=== PATIENT | female | born 1930 | race Caucasian/White ===

== ENCOUNTER 2019-02-11 09:16 | Inpatient (IN) | payer MEDICARE ==
[~2019-02-11] VITALS: Ht 163.8 cm; Wt 56.7 kg
[2019-02-11] MEDS ORDERED: IV NORMAL SALINE 1000ML BAG 1,000 ML IV SCH (10:27)
--- NOTE | 2019-02-11 10:37 | PHYS DOC ---
Past Medical History Past Medical History: Hypertension, Other Additional Past Medical Histor: syncope, chronic back pain Past Surgical History: Other Additional Past Surgical Histo: nerve stimulator (back), mult back surgeries, bilat foot surgery Additional Information: quit smoking 1983 Alcohol Use: None Drug Use: None Adult General Chief Complaint Chief Complaint: DIARRHEA HPI HPI Patient is a 88 year old female who presents with complaining of diarrhea. Patient complaining of 3-4 episodes of nonbloody diarrhea per day for the last 10 days. Patient stated episodes of diarrhea usually happens at night and sometimes during sleep she had bowel incontinence. Patient complaining of nausea and anorexia and generalized weakness with episodes of lower abdominal cramping pain during diarrhea. Patient denies fever, urinary symptom, sick contact, use of antibiotic, history of the same problem. Patient was seen by her primary care physician 5 days ago and had negative stool test. Review of Systems Review of Systems Constitutional: Denies fever, reports chills [] Eyes: Denies change in visual acuity, redness, or eye pain [] HENT: Denies nasal congestion or sore throat [] Respiratory: Denies cough or shortness of breath [] Cardiovascular: No additional information not addressed in HPI [] GI: Reports abdominal pain, nausea, diarrhea [] : Denies dysuria or hematuria [] Musculoskeletal: Denies back pain or joint pain [] Integument: Denies rash or skin lesions [] Neurologic: Denies headache, focal weakness or sensory changes [] Endocrine: Denies polyuria or polydipsia [] All other systems were reviewed and found to be within normal limits, except as documented in this note. Current Medications Current Medications Current Medications Medications (Trade) Dose Ordered Sig/Kentrell Start Time Stop Time Status Last Admin Dose Admin Iohexol (Omnipaque 240 Mg/ml) 50 ml 1X ONCE 02/11/19 12:00 02/11/19 12:01 DC 02/11/19 12:00 50 ML Iohexol (Omnipaque 300 Mg/ml) 60 ml 1X ONCE 02/11/19 12:00 02/11/19 12:01 DC 02/11/19 12:35 60 ML Sodium Chloride 1,000 ml @ 1,000 mls/hr Q1H 02/11/19 10:27 02/11/19 11:26 DC 02/11/19 11:12 1,000 MLS/HR Allergies Allergies Physical Exam Physical Exam Constitutional: Well developed, well nourished, mild distress, non-toxic appearance. [] HENT: Normocephalic, atraumatic, oropharynx dry. Eyes: PERRLA, EOMI, conjunctiva normal, no discharge. [] Neck: Normal range of motion, no tenderness, supple, no stridor. [] Cardiovascular:Heart rate regular rhythm, no murmur [] Lungs & Thorax: Bilateral breath sounds clear to auscultation [] Abdomen: Bowel sounds hyperactive, soft, no tenderness, no masses, no pulsatile masses. [] Skin: Warm, dry, no erythema, no rash. [] Back: No tenderness, no CVA tenderness. [] Extremities: No tenderness, no cyanosis, no clubbing, ROM intact, no edema. [] Neurologic: Alert and oriented X 3, normal motor function, normal sensory function, no focal deficits noted. [] Psychologic: Affect normal, judgement normal, mood normal. [] Current Patient Data Vital Signs Vital Signs Date Time Temp Pulse Resp B/P (MAP) Pulse Ox O2 Delivery O2 Flow Rate FiO2 02/11/19 13:00 66 15 164/68 (100) 98 Room Air 02/11/19 10:00 98.3 98.3 Lab Values Laboratory Tests Test 02/11/19 10:45 02/11/19 11:01 02/11/19 12:26 White Blood Count 6.4 x10^3/uL (4.0-11.0) Red Blood Count 4.09 x10^6/uL (3.50-5.40) Hemoglobin 12.8 g/dL (12.0-15.5) Hematocrit 37.8 % (36.0-47.0) Mean Corpuscular Volume 92 fL (79-100) Mean Corpuscular Hemoglobin 31 pg (25-35) Mean Corpuscular Hemoglobin Concent 34 g/dL (31-37) Red Cell Distribution Width 12.7 % (11.5-14.5) Platelet Count 216 x10^3/uL (140-400) Neutrophils (%) (Auto) 74 % (31-73) H Lymphocytes (%) (Auto) 15 % (24-48) L Monocytes (%) (Auto) 8 % (0-9) Eosinophils (%) (Auto) 2 % (0-3) Basophils (%) (Auto) 1 % (0-3) Neutrophils # (Auto) 4.8 x10^3uL (1.8-7.7) Lymphocytes # (Auto) 1.0 x10^3/uL (1.0-4.8) Monocytes # (Auto) 0.5 x10^3/uL (0.0-1.1) Eosinophils # (Auto) 0.1 x10^3/uL (0.0-0.7) Basophils # (Auto) 0.0 x10^3/uL (0.0-0.2) Sodium Level 141 mmol/L (136-145) Potassium Level 3.8 mmol/L (3.5-5.1) Chloride Level 105 mmol/L (98-107) Carbon Dioxide Level 26 mmol/L (21-32) Anion Gap 10 (6-14) Blood Urea Nitrogen 17 mg/dL (7-20) Creatinine 1.1 mg/dL (0.6-1.0) H Estimated GFR (Cockcroft-Gault) 46.9 BUN/Creatinine Ratio 15 (6-20) Glucose Level 95 mg/dL (70-99) Lactic Acid Level 1.0 mmol/L (0.4-2.0) Calcium Level 9.5 mg/dL (8.5-10.1) Total Bilirubin 1.1 mg/dL (0.2-1.0) H Aspartate Amino Transferase (AST) 25 U/L (15-37) Alanine Aminotransferase (ALT) 21 U/L (14-59) Alkaline Phosphatase 73 U/L (46-116) Total Protein 7.0 g/dL (6.4-8.2) Albumin 3.2 g/dL (3.4-5.0) L Albumin/Globulin Ratio 0.8 (1.0-1.7) L Lipase 67 U/L (73-393) L Stool Occult Blood Positive (NEG) Urine Collection Type Unknown Urine Color Yellow Urine Clarity Clear Urine pH 5.0 Urine Specific [place] <=1.005 Urine Protein Negative mg/dL (NEG-TRACE) Urine Glucose (UA) Negative mg/dL (NEG) Urine Ketones (Stick) Negative mg/dL (NEG) Urine Blood Negative (NEG) Urine Nitrite Negative (NEG) Urine Bilirubin Negative (NEG) Urine Urobilinogen Dipstick 0.2 mg/dL (0.2 mg/dL) Urine Leukocyte Esterase Moderate (NEG) Urine RBC Occ /HPF (0-2) Urine WBC 11-20 /HPF (0-4) Urine Squamous Epithelial Cells Few /LPF Urine Transitional Epithelial Cells Occ /LPF Urine Bacteria Few /HPF (0-FEW) Urine Mucus Slight /LPF Laboratory Tests 02/11/19 10:45 Laboratory Tests 02/11/19 10:45 EKG EKG [] Radiology/Procedures Radiology/Procedures [facility] [address] [place] [address] IMAGING REPORT Signed PATIENT: ALEXIS SWEET ACCOUNT: [id number] : 1930 LOCATION: ER AGE: 88 SEX: F EXAM STATUS: REG ER ORD. PHYSICIAN: JEFFREY DOE MD REASON: diarrhea 10 days PROCEDURE: CT ABD PELV W/ORAL&IV CONTRAST Examination: CT ABD PELV W/ORAL IV CONTRAST History: DIARRHEA X 1 WEEK INJ 60ML OMNI 300 NO PREV Comparison/Correlation: None Findings: Axial images of the abdomen and pelvis were obtained following IV contrast. Sagittal and coronal reformatted images were provided. Oral contrast administered. ICD lead is noted within the right ventricle. Visualized lung bases are clear. Intrahepatic biliary dilatation is noted. Common duct diameter of up to 1.2 cm present. Minimal stranding about the common bile duct suggested. Cholecystectomy evident. Pancreatic duct is dilated near the ampulla extending to the neck region. It measures up to 0.6 cm diameter Small hepatic cyst is present along the posterior margin of the right hepatic lobe. Spleen is unremarkable. Pancreas is normal. Adrenal glands are normal. Kidneys are normal. No enlarged abdominal or pelvic lymph nodes. No ascites or pelvic free fluid. No inflammatory change about the cecum. No bowel obstruction. Diverticulosis of the colon noted. Hysterectomy noted. Urinary bladder is unremarkable. Sacralization of L5 noted. Spinal similar device noted with a lead extending to the low thoracic spinal canal level. It is not completely visualized at its superior aspect for purposes of this exam. Defect involving the right iliac wing is noted. Correlate with intervention. Impression: Distended common bile duct and distended intrahepatic biliary tree. Distended pancreatic duct near the ampulla extending to the pancreatic neck. Underlying obstructive mass lesion at the may account for this finding but no mass at the ampulla is delineated on CT. Correlate with prior exams to assess stability of findings in determining further imaging or other evaluation. Diverticulosis. PQRS Compliance Statement: One or more of the following individualized dose reduction techniques were utilized for this examination: 1. Automated exposure control 2. Adjustment of the mA and/or kV according to patient size 3. Use of iterative reconstruction technique Electronically signed by: Nasir Rich MD (02/11/2019 1:00 PM) [facility] DICTATED and SIGNED BY: NASIR RICH MD DATE: 02/11/19 1300 Course & Med Decision Making Course & Med Decision Making Pertinent Labs and Imaging studies reviewed. (See chart for details) Patient requiring admission for further evaluation and treatment. Discussed with (hospitalist) who is in agreement with admission. Discussed findings and plan with patient and family, who acknowledge understanding and agreement. Dragon Disclaimer Dragon Disclaimer This electronic medical record was generated, in whole or in part, using a voice recognition dictation system. Departure Departure Impression: Primary Impression: Diarrhea Additional Impressions: Urinary tract infection Abnormal CAT scan Disposition: 09 ADMITTED INPATIENT (at 1334) Condition: IMPROVED Referrals: UNKNOWN PCP NAME (PCP) Problem Qualifiers Primary Impression: Diarrhea Diarrhea type: unspecified type Qualified Codes: R19.7 - Diarrhea, un specified Additional Impressions: Urinary tract infection Urinary tract infection type: site unspecified Hematuria presence: without hematuria Qualified Codes: N39.0 - Urinary tract infection, site not spec ified JEFFREY DOE MD Feb 11, 2019 10:37
[2019-02-11 11:02] LABS: BASO % 1 % (0-3); EOS # 0.1 x10^3/uL (0.0-0.7); EOS % 2 % (0-3); HEMATOCRIT 37.8 % (36.0-47.0); HEMOGLOBIN 12.8 g/dL (12.0-15.5); LYMPH % 15 % (24-48); MEAN CORPUSCULAR HEMOGLOBIN 31 pg (25-35); MEAN CORPUSCULAR HGB CONC 34 g/dL (31-37); MEAN CORPUSCULAR VOLUME 92 fL (79-100); MONO # 0.5 x10^3/uL (0.0-1.1); MONO % 8 % (0-9); NEUT # 4.8 x10^3uL (1.8-7.7); NEUT % 74 % (31-73); PLATELET COUNT 216 x10^3/uL (140-400); RED BLOOD COUNT 4.09 x10^6/uL (3.50-5.40); RED CELL DISTRIBUTION WIDTH 12.7 % (11.5-14.5); WHITE BLOOD COUNT 6.4 x10^3/uL (4.0-11.0)
[2019-02-11 11:05] LABS: CALCIUM 9.5 mg/dL (8.5-10.1); CREATININE 1.1 mg/dL (0.6-1.0); GFR 46.9; POTASSIUM 3.8 mmol/L (3.5-5.1)
[2019-02-11 11:11] LABS: ALBUMIN 3.2 g/dL (3.4-5.0); ALBUMIN/GLOBULIN RATIO 0.8 (1.0-1.7); TOTAL BILIRUBIN 1.1 mg/dL (0.2-1.0)
[2019-02-11 11:30] LABS: FECAL OB PT POSITIVE (NEG)
[2019-02-11] MEDS ORDERED: IOHEXOL 240 MG/ML 50ML VIAL. PO ONE (12:00)
[2019-02-11] MEDS ORDERED: IOHEXOL 300 MG/ML 100ML VIAL. IV ONE (12:00)
[2019-02-11 12:36] LABS: BILIRUBIN,URINE NEGATIVE (NEG); CLARITY,URINE CLEAR; COLOR,URINE YELLOW; NITRITE,URINE NEGATIVE (NEG); PROTEIN,URINE NEGATIVE (NEG-TRACE); UROBILINOGEN,URINE 0.2 mg/dL (0.2 mg/dL)
[2019-02-11 12:43] LABS: BACTERIA,URINE FEW /HPF (0-FEW); RBC,URINE OCC /HPF (0-2); SQUAMOUS EPITHELIAL CELL,UR FEW /LPF
--- NOTE | 2019-02-11 13:03 | RAD ---
Examination: CT ABD PELV W/ORAL IV CONTRAST History: DIARRHEA X 1 WEEK INJ 60ML OMNI 300 NO PREV Comparison/Correlation: None Findings: Axial images of the abdomen and pelvis were obtained following IV contrast. Sagittal and coronal reformatted images were provided. Oral contrast administered. ICD lead is noted within the right ventricle. Visualized lung bases are clear. Intrahepatic biliary dilatation is noted. Common duct diameter of up to 1.2 cm present. Minimal stranding about the common bile duct suggested. Cholecystectomy evident. Pancreatic duct is dilated near the ampulla extending to the neck region. It measures up to 0.6 cm diameter Small hepatic cyst is present along the posterior margin of the right hepatic lobe. Spleen is unremarkable. Pancreas is normal. Adrenal glands are normal. Kidneys are normal. No enlarged abdominal or pelvic lymph nodes. No ascites or pelvic free fluid. No inflammatory change about the cecum. No bowel obstruction. Diverticulosis of the colon noted. Hysterectomy noted. Urinary bladder is unremarkable. Sacralization of L5 noted. Spinal similar device noted with a lead extending to the low thoracic spinal canal level. It is not completely visualized at its superior aspect for purposes of this exam. Defect involving the right iliac wing is noted. Correlate with intervention. Impression: Distended common bile duct and distended intrahepatic biliary tree. Distended pancreatic duct near the ampulla extending to the pancreatic neck. Underlying obstructive mass lesion at the may account for this finding but no mass at the ampulla is delineated on CT. Correlate with prior exams to assess stability of findings in determining further imaging or other evaluation. Diverticulosis. PQRS Compliance Statement: One or more of the following individualized dose reduction techniques were utilized for this examination: 1. Automated exposure control 2. Adjustment of the mA and/or kV according to patient size 3. Use of iterative reconstruction technique Electronically signed by: Nasir Huffman MD (02/11/2019 1:00 PM) [facility]
[2019-02-11] MEDS ORDERED: cefTRIAXone IV Push 1 GM VIAL. IVP ONE (13:30)
[2019-02-11] MEDS ORDERED: ONDANSETRON PF 4 MG/2 ML VIAL. IV PRN (13:45)
[2019-02-11] MEDS ORDERED: hydrALAZINE 20 MG/ML VIAL. IVP PRN (13:45)
[2019-02-11] MEDS ORDERED: IV 1/2 NORMAL SALINE 1,000 ML IV ONE (13:45)
[2019-02-11] MEDS ORDERED: MORPHINE SULFATE 2 MG/ML VIAL. IV PRN (13:45)
[2019-02-11] MEDS ORDERED: MAG HYDROX/ALUMINUM HYD/SIMETH 30 ML ORAL.SUSP PO PRN (13:45)
[2019-02-11] MEDS ORDERED: oxyCODONE/APAP 5/325 1 TAB TABLET PO PRN (13:45)
[2019-02-11] MEDS ORDERED: TEMAZEPAM 7.5 MG CAPSULE PO PRN (13:45)
[2019-02-11] MEDS ORDERED: ACETAMINOPHEN 325 MG TABLET. PO PRN (13:45)
[2019-02-11] MEDS ORDERED: PROCHLORPERAZINE 10 MG/2 ML VIAL. IV PRN (13:45)
[2019-02-11] MEDS ORDERED: CALCIUM CARBONATE 500 MG TAB.CHEW PO PRN (13:45)
[2019-02-11] MEDS ORDERED: oxyCODONE IR 5 MG TABLET PO PRN (13:45)
--- NOTE | 2019-02-11 14:02 | PDOC1 ---
History and Physical Date of Admission Date of Admission DATE: 02/11/19 TIME: 13:57 Identification/Chief Complaint Chief Complaint Diarrhea for 10 days Source Source: Caregiver, Chart review, Patient History of Present Illness History of Present Illness Very pleasant 88-year-old white female lives at home with , diarrhea for 10 days. Tried Imodium, temporary relief only. . No blood in stool. Hx c diff [place] 5 or 10 yrs ago. Hemoccult positive. So far elytes okay except for creatinine 1.1 ? UTI on UA. Blood pressure on the high side, heart rate 63. History of hypertension on meds. LAst colonoscopy was 5 years ago was told normal. Dr Titus - GI Her home meds including PPI 40 Lasix 40 once a day metoprolol 100 once a day Centrum Silver, Synthroid 25 micral grams a day potassium supplements 20 twice a day oxycodone when necessary probiotic vitamin B complex and cranberry pill CT: Impression: Distended common bile duct and distended intrahepatic biliary tree. Distended pancreatic duct near the ampulla extending to the pancreatic neck. Underlying obstructive mass lesion at the may account for this finding but no mass at the ampulla is delineated on CT. Correlate with prior exams to assess stability of findings in determining further imaging or other evaluation. Past Medical History Cardiovascular: HTN Past Surgical History Past Surgical History: Cholecystectomy Family History Family History: Hypertension Social History Smoke: No ALCOHOL: none Drugs: None Current Medications Current Medications Current Medications Sodium Chloride 1,000 ml @ 1,000 mls/hr Q1H IV Last administered on 02/11/19at 11:12; Start 02/11/19 at 10:27; Stop 02/11/19 at 11:26; Status DC Iohexol (Omnipaque 300 Mg/ml) 60 ml 1X ONCE IV Last administered on 02/11/19at 12:35; Start 02/11/19 at 12:00; Stop 02/11/19 at 12:01; Status DC Iohexol (Omnipaque 240 Mg/ml) 50 ml 1X ONCE PO Last administered on 02/11/19at 12:00; Start 02/11/19 at 12:00; Stop 02/11/19 at 12:01; Status DC Ceftriaxone Sodium (Rocephin) 1 gm 1X ONCE IVP ; Start 02/11/19 at 13:30; Stop 02/11/19 at 13:31; Status DC Ondansetron HCl (Zofran) 4 mg PRN Q6HRS PRN IV NAUSEA/VOMITING; Start 02/11/19 at 13:45 Prochlorperazine Edisylate (Compazine) 10 mg PRN Q6HRS PRN IV NAUSEA/VOMITING; Start 02/11/19 at 13:45 Al Hydroxide/Mg Hydroxide (Mylanta Plus Xs) 30 ml PRN Q3HRS PRN PO HEARTBURN / GAS; Start 02/11/19 at 13:45 Calcium Carbonate/ Glycine (Tums) 500 mg PRN Q3HRS PRN PO UPSET STOMACH; Start 02/11/19 at 13:45 Oxycodone HCl (Roxicodone) 5 mg PRN Q3HRS PRN PO BREAKTHROUGH PAIN; Start 02/11/19 at 13:45 Morphine Sulfate (Morphine Sulfate) 2 mg PRN Q2HR PRN IV PAIN; Start 02/11/19 at 13:45 Acetaminophen (Tylenol) 650 mg PRN Q6HRS PRN PO Headaches, Temp > 101.5F; Start 02/11/19 at 13:45 Loperamide HCl (Imodium) 2 mg PRN Q15MIN PRN PO DIARRHEA; Start 02/11/19 at 13:45 Hydralazine HCl (Apresoline Inj) 10 mg PRN Q4HRS PRN IVP ELEVATED BP, SEE COMMENTS; Start 02/11/19 at 13:45 Temazepam (Restoril) 7.5 mg PRN QHS PRN PO INSOMNIA; Start 02/11/19 at 13:45 Allergies Allergies: Coded Allergies: gabapentin (Verified Allergy, Unknown, 02/11/19) levofloxacin (Verified Allergy, Unknown, 02/11/19) prednisone (Verified Allergy, Unknown, 02/11/19) simvastatin (Verified Allergy, Unknown, 02/11/19) ROS Review of System As per history of present illness, the rest of ROS 14 point negative Physical Exam General: Alert, Oriented X3, Cooperative, No acute distress HEENT: Atraumatic, PERRLA, EOMI Lungs: Clear to auscultation, Normal air movement Heart: S1S2, RRR, no thrills, no rubs, no gallops, no murmurs Cardiovascular: S1, S2 Breasts: Normal, Rt breast nml w/o mass, Lt breast nml w/o mass, Nipples normal Abdomen: Soft, Other (hyper active bowel sounds) Rectal Exam: not examined PELVIC: Nml ext genitalia Extremities: No clubbing, No cyanosis, No edema, Normal pulses, No tenderness/swelling Skin: No rashes, No breakdown, No significant lesion Neuro: Normal gait, Normal speech, Strength at 5/5 X4 ext, Normal tone, Sensation intact, Cranial nerves 3-12 NL, Reflexes 2+ Psych/Mental Status: Mental status NL, Mood NL Vitals Vitals Vital Signs Date Time Temp Pulse Resp B/P (MAP) Pulse Ox O2 Delivery O2 Flow Rate FiO2 02/11/19 10:00 98.3 63 18 186/74 (111) 98 Room Air 98.3 Labs Labs Laboratory Tests Test 02/11/19 10:45 02/11/19 11:01 02/11/19 12:26 White Blood Count 6.4 x10^3/uL (4.0-11.0) Red Blood Count 4.09 x10^6/uL (3.50-5.40) Hemoglobin 12.8 g/dL (12.0-15.5) Hematocrit 37.8 % (36.0-47.0) Mean Corpuscular Volume 92 fL (79-100) Mean Corpuscular Hemoglobin 31 pg (25-35) Mean Corpuscular Hemoglobin Concent 34 g/dL (31-37) Red Cell Distribution Width 12.7 % (11.5-14.5) Platelet Count 216 x10^3/uL (140-400) Neutrophils (%) (Auto) 74 % (31-73) Lymphocytes (%) (Auto) 15 % (24-48) Monocytes (%) (Auto) 8 % (0-9) Eosinophils (%) (Auto) 2 % (0-3) Basophils (%) (Auto) 1 % (0-3) Neutrophils # (Auto) 4.8 x10^3uL (1.8-7.7) Lymphocytes # (Auto) 1.0 x10^3/uL (1.0-4.8) Monocytes # (Auto) 0.5 x10^3/uL (0.0-1.1) Eosinophils # (Auto) 0.1 x10^3/uL (0.0-0.7) Basophils # (Auto) 0.0 x10^3/uL (0.0-0.2) Sodium Level 141 mmol/L (136-145) Potassium Level 3.8 mmol/L (3.5-5.1) Chloride Level 105 mmol/L (98-107) Carbon Dioxide Level 26 mmol/L (21-32) Anion Gap 10 (6-14) Blood Urea Nitrogen 17 mg/dL (7-20) Creatinine 1.1 mg/dL (0.6-1.0) Estimated GFR (Cockcroft-Gault) 46.9 BUN/Creatinine Ratio 15 (6-20) Glucose Level 95 mg/dL (70-99) Lactic Acid Level 1.0 mmol/L (0.4-2.0) Calcium Level 9.5 mg/dL (8.5-10.1) Total Bilirubin 1.1 mg/dL (0.2-1.0) Aspartate Amino Transf (AST/SGOT) 25 U/L (15-37) Alanine Aminotransferase (ALT/SGPT) 21 U/L (14-59) Alkaline Phosphatase 73 U/L (46-116) Total Protein 7.0 g/dL (6.4-8.2) Albumin 3.2 g/dL (3.4-5.0) Albumin/Globulin Ratio 0.8 (1.0-1.7) Lipase 67 U/L (73-393) Stool Occult Blood Positive (NEG) Urine Collection Type Unknown Urine Color Yellow Urine Clarity Clear Urine pH 5.0 Urine Specific [place] <=1.005 Urine Protein Negative mg/dL (NEG-TRACE) Urine Glucose (UA) Negative mg/dL (NEG) Urine Ketones (Stick) Negative mg/dL (NEG) Urine Blood Negative (NEG) Urine Nitrite Negative (NEG) Urine Bilirubin Negative (NEG) Urine Urobilinogen Dipstick 0.2 mg/dL (0.2 mg/dL) Urine Leukocyte Esterase Moderate (NEG) Urine RBC Occ /HPF (0-2) Urine WBC 11-20 /HPF (0-4) Urine Squamous Epithelial Cells Few /LPF Urine Transitional Epithelial Cells Occ /LPF Urine Bacteria Few /HPF (0-FEW) Urine Mucus Slight /LPF Laboratory Tests Test 02/11/19 10:45 02/11/19 11:01 02/11/19 12:26 White Blood Count 6.4 x10^3/uL (4.0-11.0) Red Blood Count 4.09 x10^6/uL (3.50-5.40) Hemoglobin 12.8 g/dL (12.0-15.5) Hematocrit 37.8 % (36.0-47.0) Mean Corpuscular Volume 92 fL (79-100) Mean Corpuscular Hemoglobin 31 pg (25-35) Mean Corpuscular Hemoglobin Concent 34 g/dL (31-37) Red Cell Distribution Width 12.7 % (11.5-14.5) Platelet Count 216 x10^3/uL (140-400) Neutrophils (%) (Auto) 74 % (31-73) Lymphocytes (%) (Auto) 15 % (24-48) Monocytes (%) (Auto) 8 % (0-9) Eosinophils (%) (Auto) 2 % (0-3) Basophils (%) (Auto) 1 % (0-3) Neutrophils # (Auto) 4.8 x10^3uL (1.8-7.7) Lymphocytes # (Auto) 1.0 x10^3/uL (1.0-4.8) Monocytes # (Auto) 0.5 x10^3/uL (0.0-1.1) Eosinophils # (Auto) 0.1 x10^3/uL (0.0-0.7) Basophils # (Auto) 0.0 x10^3/uL (0.0-0.2) Sodium Level 141 mmol/L (136-145) Potassium Level 3.8 mmol/L (3.5-5.1) Chloride Level 105 mmol/L (98-107) Carbon Dioxide Level 26 mmol/L (21-32) Anion Gap 10 (6-14) Blood Urea Nitrogen 17 mg/dL (7-20) Creatinine 1.1 mg/dL (0.6-1.0) Estimated GFR (Cockcroft-Gault) 46.9 BUN/Creatinine Ratio 15 (6-20) Glucose Level 95 mg/dL (70-99) Lactic Acid Level 1.0 mmol/L (0.4-2.0) Calcium Level 9.5 mg/dL (8.5-10.1) Total Bilirubin 1.1 mg/dL (0.2-1.0) Aspartate Amino Transf (AST/SGOT) 25 U/L (15-37) Alanine Aminotransferase (ALT/SGPT) 21 U/L (14-59) Alkaline Phosphatase 73 U/L (46-116) Total Protein 7.0 g/dL (6.4-8.2) Albumin 3.2 g/dL (3.4-5.0) Albumin/Globulin Ratio 0.8 (1.0-1.7) Lipase 67 U/L (73-393) Stool Occult Blood Positive (NEG) Urine Collection Type Unknown Urine Color Yellow Urine Clarity Clear Urine pH 5.0 Urine Specific [place] <=1.005 Urine Protein Negative mg/dL (NEG-TRACE) Urine Glucose (UA) Negative mg/dL (NEG) Urine Ketones (Stick) Negative mg/dL (NEG) Urine Blood Negative (NEG) Urine Nitrite Negative (NEG) Urine Bilirubin Negative (NEG) Urine Urobilinogen Dipstick 0.2 mg/dL (0.2 mg/dL) Urine Leukocyte Esterase Moderate (NEG) Urine RBC Occ /HPF (0-2) Urine WBC 11-20 /HPF (0-4) Urine Squamous Epithelial Cells Few /LPF Urine Transitional Epithelial Cells Occ /LPF Urine Bacteria Few /HPF (0-FEW) Urine Mucus Slight /LPF VTE Prophylaxis Ordered VTE Prophylaxis Devices: Yes VTE Pharmacological Prophylaxi: Yes Assessment/Plan Assessment/Plan Diarrhea 10 days Dilated CBD duct, intrahepatic duct-history cholecystectomy Last colonoscopy 5 years ago normal 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 UTI History UTI Hx C. difficile after hospitalization/[place]-10 years ago PLAN: Admit 2 midnights Consult GI C. difficile pending - Imodium if C. difficile neg SOme gentle IVF Ok for reg diet OKay to continue all home medications Hydralazine prn Isol prec for now FULL CODE dw and pt Seen at SRUTHI HUMPHRIES MD Feb 11, 2019 14:02
[2019-02-11] MEDS: FUROSEMIDE 40 MG TABLET. PO SCH (14:35)
--- NOTE | 2019-02-11 15:36 | PDOC2 ---
GI CONSULT Reason For Consult: Diarrhea x 10 days, abnormal CT HPI: HPI: 88 y/o female seen in ER. Reports 10 days of worsening diarrhea. No precipitating events. Started Cymbalta after diarrhea began. Saw PCP and reports stool test (one that she collected at home, froze, and returned) was negative. Stools are "brown water" and sometimes "slimy." Some issues w/ incontinence while sleeping, then has about 5 stools during the day. No h/o diarrhea (though had C Diff a few years ago - says was hospitalized in [place] and had diarrhea, then D Ciff diagnosed when back in [place]) - previously had 1 formed stool each morning w/ rare constipation. Labs note normal WBC, Hgb, BUN, and lipase. Cr and bili are both 1.1 w/ remaining LFTs WNL. Fecal occult was positive. On CT: intrahepatic biliary dilatation w/ CBD up to 1.2cm and possible minimal stranding about the CBD, dilated PD near ampulla extending to the neck, normal pancreas, small right hepatic cyst. H/o GERD controlled w/ a medication (not sure what it's called - H&P says PPI). Occasional dysphagia w/ pills and rarely w/ solids. No n/v but has no appetite (though ate mashed potatoes and gravy yesterday). No hematochezia or melena. Not sure about weight loss. Thinks had EGD at [facility] sometime, recalls no significant findings. Reports colonoscopy w/ polyps ~5 years ago w/ Dr. iTtus. Diverticulosis noted on CT. S/p cholecystectomy for stones. Denies pancreas and liver history. Chronic back pain on oxycodone BID. Has felt cold since diarrhea started. PMH: PMH: HTN, GERD, diverticulosis, C Diff, chronic back pain, hypothyroidism, UTI cholecystectomy, total hysterectomy, back surgeries, nerve stimulator, bilateral foot surgeries, pacemaker Social History: Smoke: No ALCOHOL: none Drugs: None ROS: GEN: +chills HEENT: Denies blurred vision, sore throat CV: Denies chest pain RESP: Denies shortness of air, cough GI: Per HPI : Denies hematuria, dysuria ENDO: Denies weight changes NEURO: Denies confusion, dizziness MSK: +chronic back pain SKIN: Denies jaundice, pruritus Vitals: Vitals: Vital Signs Date Time Temp Pulse Resp B/P (MAP) Pulse Ox O2 Delivery O2 Flow Rate FiO2 02/11/19 14:00 70 15 144/60 (88) 99 Room Air 02/11/19 10:00 98.3 98.3 Labs: Labs: Laboratory Tests Test 02/11/19 10:45 02/11/19 11:01 02/11/19 12:26 White Blood Count 6.4 x10^3/uL (4.0-11.0) Red Blood Count 4.09 x10^6/uL (3.50-5.40) Hemoglobin 12.8 g/dL (12.0-15.5) Hematocrit 37.8 % (36.0-47.0) Mean Corpuscular Volume 92 fL (79-100) Mean Corpuscular Hemoglobin 31 pg (25-35) Mean Corpuscular Hemoglobin Concent 34 g/dL (31-37) Red Cell Distribution Width 12.7 % (11.5-14.5) Platelet Count 216 x10^3/uL (140-400) Neutrophils (%) (Auto) 74 % (31-73) Lymphocytes (%) (Auto) 15 % (24-48) Monocytes (%) (Auto) 8 % (0-9) Eosinophils (%) (Auto) 2 % (0-3) Basophils (%) (Auto) 1 % (0-3) Neutrophils # (Auto) 4.8 x10^3uL (1.8-7.7) Lymphocytes # (Auto) 1.0 x10^3/uL (1.0-4.8) Monocytes # (Auto) 0.5 x10^3/uL (0.0-1.1) Eosinophils # (Auto) 0.1 x10^3/uL (0.0-0.7) Basophils # (Auto) 0.0 x10^3/uL (0.0-0.2) Sodium Level 141 mmol/L (136-145) Potassium Level 3.8 mmol/L (3.5-5.1) Chloride Level 105 mmol/L (98-107) Carbon Dioxide Level 26 mmol/L (21-32) Anion Gap 10 (6-14) Blood Urea Nitrogen 17 mg/dL (7-20) Creatinine 1.1 mg/dL (0.6-1.0) Estimated GFR (Cockcroft-Gault) 46.9 BUN/Creatinine Ratio 15 (6-20) Glucose Level 95 mg/dL (70-99) Lactic Acid Level 1.0 mmol/L (0.4-2.0) Calcium Level 9.5 mg/dL (8.5-10.1) Total Bilirubin 1.1 mg/dL (0.2-1.0) Aspartate Amino Transf (AST/SGOT) 25 U/L (15-37) Alanine Aminotransferase (ALT/SGPT) 21 U/L (14-59) Alkaline Phosphatase 73 U/L (46-116) Total Protein 7.0 g/dL (6.4-8.2) Albumin 3.2 g/dL (3.4-5.0) Albumin/Globulin Ratio 0.8 (1.0-1.7) Lipase 67 U/L (73-393) Stool Occult Blood Positive (NEG) Urine Collection Type Unknown Urine Color Yellow Urine Clarity Clear Urine pH 5.0 Urine Specific [place] <=1.005 Urine Protein Negative mg/dL (NEG-TRACE) Urine Glucose (UA) Negative mg/dL (NEG) Urine Ketones (Stick) Negative mg/dL (NEG) Urine Blood Negative (NEG) Urine Nitrite Negative (NEG) Urine Bilirubin Negative (NEG) Urine Urobilinogen Dipstick 0.2 mg/dL (0.2 mg/dL) Urine Leukocyte Esterase Moderate (NEG) Urine RBC Occ /HPF (0-2) Urine WBC 11-20 /HPF (0-4) Urine Squamous Epithelial Cells Few /LPF Urine Transitional Epithelial Cells Occ /LPF Urine Bacteria Few /HPF (0-FEW) Urine Mucus Slight /LPF Allergies: Coded Allergies: gabapentin (Verified Allergy, Intermediate, 02/11/19) levofloxacin (Verified Allergy, Intermediate, 02/11/19) prednisone (Verified Allergy, Intermediate, 02/11/19) simvastatin (Verified Allergy, Intermediate, 02/11/19) Medications: Current Medications Medications (Trade) Dose Ordered Sig/Kentrell Route PRN Reason Start Time Stop Time Status Last Admin Dose Admin Sodium Chloride 1,000 ml @ 1,000 mls/hr Q1H IV 02/11/19 10:27 02/11/19 11:26 DC 02/11/19 11:12 Iohexol (Omnipaque 300 Mg/ml) 60 ml 1X ONCE IV 02/11/19 12:00 02/11/19 12:01 DC 02/11/19 12:35 Iohexol (Omnipaque 240 Mg/ml) 50 ml 1X ONCE PO 02/11/19 12:00 02/11/19 12:01 DC 02/11/19 12:00 Ceftriaxone Sodium (Rocephin) 1 gm 1X ONCE IVP 02/11/19 13:30 02/11/19 13:31 DC 02/11/19 14:32 Furosemide (Lasix) 40 mg DAILY PO 02/11/19 14:30 02/11/19 14:35 Sodium Chloride 1,000 ml @ 75 mls/hr 1X ONCE IV 02/11/19 13:45 02/12/19 03:04 02/11/19 13:45 Imaging: Imaging: CT A/P w/ oral and IV contrast 02/11/19 ICD lead is noted within the right ventricle. Visualized lung bases are clear. Intrahepatic biliary dilatation is noted. Common duct diameter of up to 1.2 cm present. Minimal stranding about the common bile duct suggested. Cholecystectomy evident. Pancreatic duct is dilated near the ampulla extending to the neck region. It measures up to 0.6 cm diameter Small hepatic cyst is present along the posterior margin of the right hepatic lobe. Spleen is unremarkable. Pancreas is normal. Adrenal glands are normal. Kidneys are normal. No enlarged abdominal or pelvic lymph nodes. No ascites or pelvic free fluid. No inflammatory change about the cecum. No bowel obstruction. Diverticulosis of the colon noted. Hysterectomy noted. Urinary bladder is unremarkable. Sacralization of L5 noted. Spinal similar device noted with a lead extending to the low thoracic spinal canal level. It is not completely visualized at its s uperior aspect for purposes of this exam. Defect involving the right iliac wing is noted. Correlate with intervention. Impression: Distended common bile duct and distended intrahepatic biliary tree. Distended pancreatic duct near the ampulla extending to the pancreatic neck. Underlying obstructive mass lesion at the may account for this finding but no mass at the ampulla is delineated on CT. Correlate with prior exams to assess stability of findings in determining further imaging or other evaluation. Diverticulosis. PE: GEN: NAD HEENT: Atraumatic, PERRL LUNGS: CTAB HEART: RRR ABD: NABS, S/ND/NT EXTREMITY: No edema SKIN: No rashes, no jaundice NEURO/PSYCH: A & O 3 A/P: A/P: Diarrhea, anorexia +fecal occult - denies bleeding, Hgb and BUN WNL Abnormal CT - dilated CBD and PD, LFTs WNL except bili 1.1 GERD - reportedly on PPI Occasional pill/solid food dysphagia - thinks had EGD in the past CRC screen, h/o polyps - says last colonoscopy ~5 years ago H/o C Diff Diverticulosis S/p cholecystectomy HTN, chronic back pain - per primary -- C Diff in process, await this. Will review CT findings w/ Dr. Hollingsworth. MARISA BUCKNER Feb 11, 2019 15:36
[2019-02-11 15:55] VITALS: BP 109/45
[2019-02-11] MEDS: PANTOPRAZOLE 40 MG TABLET.DR. PO SCH (16:41)
[2019-02-11] MEDS: METOPROLOL SUCC 24HR ER 100 MG TAB.ER.24H. PO SCH (16:42)
[2019-02-11] MEDS ORDERED: POTA20TA82 PO (16:55)
[2019-02-11] MEDS ORDERED: LACT1CAP6 PO (17:03)
[2019-02-11] MEDS ORDERED: MULT-658 PO (17:03)
[2019-02-11] MEDS ORDERED: PANT20TA2 PO (17:03)
[2019-02-11] MEDS ORDERED: FURO40TA4 PO (17:03)
[2019-02-11] MEDS ORDERED: CRAN425C3 PO (17:03)
[2019-02-11] MEDS ORDERED: LEVO25TA4 PO (17:03)
[2019-02-11] MEDS ORDERED: DULO30CA2 PO (17:03)
[2019-02-11] MEDS ORDERED: OXYC1TAB15 PO (17:03)
[2019-02-11] MEDS ORDERED: CHOL500016 PO (17:03)
[2019-02-11] MEDS ORDERED: METO100T7 PO (17:03)
[2019-02-11 19:00] VITALS: BP 117/45
[2019-02-11] MEDS: LACTOBACILLUS RHAMNOSUS GG 1 CAPSULE. PO SCH (20:47)
[2019-02-11 23:00] VITALS: BP 118/92
[2019-02-12 03:00] VITALS: BP 126/53
[2019-02-12 05:11] LABS: BASO % 1 % (0-3); EOS # 0.2 x10^3/uL (0.0-0.7); EOS % 3 % (0-3); HEMOGLOBIN 11.4 g/dL (12.0-15.5); LYMPH # 1.3 x10^3/uL (1.0-4.8); LYMPH % 24 % (24-48); MEAN CORPUSCULAR HEMOGLOBIN 31 pg (25-35); MEAN CORPUSCULAR HGB CONC 34 g/dL (31-37); MEAN CORPUSCULAR VOLUME 93 fL (79-100); MONO # 0.6 x10^3/uL (0.0-1.1); MONO % 10 % (0-9); NEUT # 3.5 x10^3uL (1.8-7.7); NEUT % 63 % (31-73); PLATELET COUNT 188 x10^3/uL (140-400); RED BLOOD COUNT 3.64 x10^6/uL (3.50-5.40); RED CELL DISTRIBUTION WIDTH 12.8 % (11.5-14.5); WHITE BLOOD COUNT 5.6 x10^3/uL (4.0-11.0)
[2019-02-12 05:28] LABS: CALCIUM 8.9 mg/dL (8.5-10.1); GFR 52.3; POTASSIUM 3.2 mmol/L (3.5-5.1)
[2019-02-12] MEDS: LEVOTHYROXINE 25 MCG TABLET. PO SCH (05:40)
[2019-02-12 07:00] VITALS: BP 125/52
[2019-02-12] MEDS ORDERED: POTASSIUM CHLORIDE 20 MEQ TABLET.ER. PO ONE (08:00)
[2019-02-12] MEDS: LACTOBACILLUS RHAMNOSUS GG 1 CAPSULE. PO SCH ×2 (09:27→21:06)
[2019-02-12] MEDS: METOPROLOL SUCC 24HR ER 100 MG TAB.ER.24H. PO SCH (09:28)
[2019-02-12] MEDS: FUROSEMIDE 40 MG TABLET. PO SCH (09:28)
[2019-02-12] MEDS: PANTOPRAZOLE 40 MG TABLET.DR. PO SCH (09:28)
[2019-02-12] MEDS: MULTIVITAMIN with MINERAL TABLET. PO SCH (09:28)
[2019-02-12] MEDS: LOPERAMIDE 2 MG CAPSULE PO PRN ×4 (09:29→21:07)
--- NOTE | 2019-02-12 10:56 | PDOC ---
Subjective: Subjective: Not much better. Had two watery stools today w/ abd cramping. Ate a little breakfast. Objective: Objective: Took an Imodium this morning. Vital Signs: Vital Signs Date Time Temp Pulse Resp B/P (MAP) Pulse Ox O2 Delivery O2 Flow Rate FiO2 02/12/19 09:28 63 125/52 02/12/19 07:00 98.1 16 96 Room Air 98.1 Labs: Laboratory Tests Test 02/11/19 11:01 02/11/19 12:26 02/12/19 04:30 Stool Occult Blood Positive Clostridium difficile Toxin B Gene Negative Urine Collection Type Unknown Urine Color Yellow Urine Clarity Clear Urine pH 5.0 Urine Specific [place] <=1.005 Urine Protein Negative mg/dL Urine Glucose (UA) Negative mg/dL Urine Ketones (Stick) Negative mg/dL Urine Blood Negative Urine Nitrite Negative Urine Bilirubin Negative Urine Urobilinogen Dipstick 0.2 mg/dL Urine Leukocyte Esterase Moderate Urine RBC Occ /HPF Urine WBC 11-20 /HPF Urine Squamous Epithelial Cells Few /LPF Urine Transitional Epithelial Cells Occ /LPF Urine Bacteria Few /HPF Urine Mucus Slight /LPF White Blood Count 5.6 x10^3/uL Red Blood Count 3.64 x10^6/uL Hemoglobin 11.4 g/dL Hematocrit 34.0 % Mean Corpuscular Volume 93 fL Mean Corpuscular Hemoglobin 31 pg Mean Corpuscular Hemoglobin Concent 34 g/dL Red Cell Distribution Width 12.8 % Platelet Count 188 x10^3/uL Neutrophils (%) (Auto) 63 % Lymphocytes (%) (Auto) 24 % Monocytes (%) (Auto) 10 % Eosinophils (%) (Auto) 3 % Basophils (%) (Auto) 1 % Neutrophils # (Auto) 3.5 x10^3uL Lymphocytes # (Auto) 1.3 x10^3/uL Monocytes # (Auto) 0.6 x10^3/uL Eosinophils # (Auto) 0.2 x10^3/uL Basophils # (Auto) 0.0 x10^3/uL Sodium Level 146 mmol/L Potassium Level 3.2 mmol/L Chloride Level 111 mmol/L Carbon Dioxide Level 23 mmol/L Anion Gap 12 Blood Urea Nitrogen 13 mg/dL Creatinine 1.0 mg/dL Estimated GFR (Cockcroft-Gault) 52.3 Glucose Level 81 mg/dL Calcium Level 8.9 mg/dL PE: GEN: NAD, up to chair LUNGS: CTAB HEART: RRR ABD: NABS, S/ND/NT NEURO/PSYCH: A & O 3 A/P: Diarrhea - h/o C Diff though negative here, last colonoscopy ~[address] - dilated CBD and PD, LFTs normal yesterday -- Will review w/ Dr. Hollingsworth. MARISA BUCKNER Feb 12, 2019 10:56
[2019-02-12 11:00] VITALS: BP 135/48
--- NOTE | 2019-02-12 11:56 | PDOC ---
PROGRESS NOTES Chief Complaint Chief Complaint CC:Diarrhea for 10days History of Present Illness History of Present Illness Pt is a pleasant 88yo female who has had ongoing diarrhea for 10days. She reports a hx of C. Diff and PSH of cholecystectomy. Pt seen and examined this morning, pt sitting upright in chair, at bedside All pts questions were answered Denies any new complaints and notes she has had 2 episodes of diarrhea today Vitals Vitals Vital Signs Date Time Temp Pulse Resp B/P (MAP) Pulse Ox O2 Delivery O2 Flow Rate FiO2 02/12/19 09:28 63 125/52 02/12/19 07:00 98.1 16 96 Room Air 98.1 Physical Exam General: Alert, Oriented X3, Cooperative, No acute distress Heart: Regular rate, Normal S1, Normal S2, No murmurs Lungs: Clear, Other (No crackles or wheezing) Abdomen: Soft, No tenderness, Other (hyper active bowel sounds) Extremities: No clubbing, No cyanosis, No edema, Normal pulses, No tenderness/swelling Skin: No rashes, No breakdown, No significant lesion Labs LABS Laboratory Tests Test 02/11/19 12:26 02/12/19 04:30 Urine Collection Type Unknown Urine Color Yellow Urine Clarity Clear Urine pH 5.0 Urine Specific [place] <=1.005 Urine Protein Negative mg/dL (NEG-TRACE) Urine Glucose (UA) Negative mg/dL (NEG) Urine Ketones (Stick) Negative mg/dL (NEG) Urine Blood Negative (NEG) Urine Nitrite Negative (NEG) Urine Bilirubin Negative (NEG) Urine Urobilinogen Dipstick 0.2 mg/dL (0.2 mg/dL) Urine Leukocyte Esterase Moderate (NEG) Urine RBC Occ /HPF (0-2) Urine WBC 11-20 /HPF (0-4) Urine Squamous Epithelial Cells Few /LPF Urine Transitional Epithelial Cells Occ /LPF Urine Bacteria Few /HPF (0-FEW) Urine Mucus Slight /LPF White Blood Count 5.6 x10^3/uL (4.0-11.0) Red Blood Count 3.64 x10^6/uL (3.50-5.40) Hemoglobin 11.4 g/dL (12.0-15.5) Hematocrit 34.0 % (36.0-47.0) Mean Corpuscular Volume 93 fL (79-100) Mean Corpuscular Hemoglobin 31 pg (25-35) Mean Corpuscular Hemoglobin Concent 34 g/dL (31-37) Red Cell Distribution Width 12.8 % (11.5-14.5) Platelet Count 188 x10^3/uL (140-400) Neutrophils (%) (Auto) 63 % (31-73) Lymphocytes (%) (Auto) 24 % (24-48) Monocytes (%) (Auto) 10 % (0-9) Eosinophils (%) (Auto) 3 % (0-3) Basophils (%) (Auto) 1 % (0-3) Neutrophils # (Auto) 3.5 x10^3uL (1.8-7.7) Lymphocytes # (Auto) 1.3 x10^3/uL (1.0-4.8) Monocytes # (Auto) 0.6 x10^3/uL (0.0-1.1) Eosinophils # (Auto) 0.2 x10^3/uL (0.0-0.7) Basophils # (Auto) 0.0 x10^3/uL (0.0-0.2) Sodium Level 146 mmol/L (136-145) Potassium Level 3.2 mmol/L (3.5-5.1) Chloride Level 111 mmol/L (98-107) Carbon Dioxide Level 23 mmol/L (21-32) Anion Gap 12 (6-14) Blood Urea Nitrogen 13 mg/dL (7-20) Creatinine 1.0 mg/dL (0.6-1.0) Estimated GFR (Cockcroft-Gault) 52.3 Glucose Level 81 mg/dL (70-99) Calcium Level 8.9 mg/dL (8.5-10.1) Review of Systems Review of Systems Denies F/C Denies CP or SOA Assessment and Plan Assessmemt and Plan Assessment: Diarrhea hx of C. Diff (+) Hemoccult HTN Diverticulosis Hypothroidism CT 02/11 showing: Distended common bile duct and distended intrahepatic biliary tree. Distended pancreatic duct near the ampulla extending to the pancreatic neck. Underlying obstructive mass lesion may account for this finding but no mass at the ampulla is delineated on CT. Plan: 40 KCl ordered Imodium, C. diff negative Consider ERCP and 19-9 level Ceftriaxone 1GM q24 Recheck labs in am Home meds PT/OT ordered Full Code Cardiac Diet Problems Medical Problems: (1) Abnormal CAT scan Status: Acute (2) Urinary tract infection Status: Acute Comment Review of Relevant I have reviewed the following items tigre (where applicable) has been applied. Labs Laboratory Tests Test 02/11/19 10:45 02/11/19 11:01 02/11/19 12:26 02/12/19 04:30 White Blood Count 6.4 x10^3/uL (4.0-11.0) 5.6 x10^3/uL (4.0-11.0) Red Blood Count 4.09 x10^6/uL (3.50-5.40) 3.64 x10^6/uL (3.50-5.40) Hemoglobin 12.8 g/dL (12.0-15.5) 11.4 g/dL (12.0-15.5) Hematocrit 37.8 % (36.0-47.0) 34.0 % (36.0-47.0) Mean Corpuscular Volume 92 fL (79-100) 93 fL (79-100) Mean Corpuscular Hemoglobin 31 pg (25-35) 31 pg (25-35) Mean Corpuscular Hemoglobin Concent 34 g/dL (31-37) 34 g/dL (31-37) Red Cell Distribution Width 12.7 % (11.5-14.5) 12.8 % (11.5-14.5) Platelet Count 216 x10^3/uL (140-400) 188 x10^3/uL (140-400) Neutrophils (%) (Auto) 74 % (31-73) 63 % (31-73) Lymphocytes (%) (Auto) 15 % (24-48) 24 % (24-48) Monocytes (%) (Auto) 8 % (0-9) 10 % (0-9) Eosinophils (%) (Auto) 2 % (0-3) 3 % (0-3) Basophils (%) (Auto) 1 % (0-3) 1 % (0-3) Neutrophils # (Auto) 4.8 x10^3uL (1.8-7.7) 3.5 x10^3uL (1.8-7.7) Lymphocytes # (Auto) 1.0 x10^3/uL (1.0-4.8) 1.3 x10^3/uL (1.0-4.8) Monocytes # (Auto) 0.5 x10^3/uL (0.0-1.1) 0.6 x10^3/uL (0.0-1.1) Eosinophils # (Auto) 0.1 x10^3/uL (0.0-0.7) 0.2 x10^3/uL (0.0-0.7) Basophils # (Auto) 0.0 x10^3/uL (0.0-0.2) 0.0 x10^3/uL (0.0-0.2) Sodium Level 141 mmol/L (136-145) 146 mmol/L (136-145) Potassium Level 3.8 mmol/L (3.5-5.1) 3.2 mmol/L (3.5-5.1) Chloride Level 105 mmol/L (98-107) 111 mmol/L (98-107) Carbon Dioxide Level 26 mmol/L (21-32) 23 mmol/L (21-32) Anion Gap 10 (6-14) 12 (6-14) Blood Urea Nitrogen 17 mg/dL (7-20) 13 mg/dL (7-20) Creatinine 1.1 mg/dL (0.6-1.0) 1.0 mg/dL (0.6-1.0) Estimated GFR (Cockcroft-Gault) 46.9 52.3 BUN/Creatinine Ratio 15 (6-20) Glucose Level 95 mg/dL (70-99) 81 mg/dL (70-99) Lactic Acid Level 1.0 mmol/L (0.4-2.0) Calcium Level 9.5 mg/dL (8.5-10.1) 8.9 mg/dL (8.5-10.1) Total Bilirubin 1.1 mg/dL (0.2-1.0) Aspartate Amino Transf (AST/SGOT) 25 U/L (15-37) Alanine Aminotransferase (ALT/SGPT) 21 U/L (14-59) Alkaline Phosphatase 73 U/L (46-116) Total Protein 7.0 g/dL (6.4-8.2) Albumin 3.2 g/dL (3.4-5.0) Albumin/Globulin Ratio 0.8 (1.0-1.7) Lipase 67 U/L (73-393) Stool Occult Blood Positive (NEG) Clostridium difficile Toxin B Gene Negative (Negative) Urine Collection Type Unknown Urine Color Yellow Urine Clarity Clear Urine pH 5.0 Urine Specific [place] <=1.005 Urine Protein Negative mg/dL (NEG-TRACE) Urine Glucose (UA) Negative mg/dL (NEG) Urine Ketones (Stick) Negative mg/dL (NEG) Urine Blood Negative (NEG) Urine Nitrite Negative (NEG) Urine Bilirubin Negative (NEG) Urine Urobilinogen Dipstick 0.2 mg/dL (0.2 mg/dL) Urine Leukocyte Esterase Moderate (NEG) Urine RBC Occ /HPF (0-2) Urine WBC 11-20 /HPF (0-4) Urine Squamous Epithelial Cells Few /LPF Urine Transitional Epithelial Cells Occ /LPF Urine Bacteria Few /HPF (0-FEW) Urine Mucus Slight /LPF Laboratory Tests Test 02/11/19 12:26 02/12/19 04:30 Urine Collection Type Unknown Urine Color Yellow Urine Clarity Clear Urine pH 5.0 Urine Specific [place] <=1.005 Urine Protein Negative mg/dL (NEG-TRACE) Urine Glucose (UA) Negative mg/dL (NEG) Urine Ketones (Stick) Negative mg/dL (NEG) Urine Blood Negative (NEG) Urine Nitrite Negative (NEG) Urine Bilirubin Negative (NEG) Urine Urobilinogen Dipstick 0.2 mg/dL (0.2 mg/dL) Urine Leukocyte Esterase Moderate (NEG) Urine RBC Occ /HPF (0-2) Urine WBC 11-20 /HPF (0-4) Urine Squamous Epithelial Cells Few /LPF Urine Transitional Epithelial Cells Occ /LPF Urine Bacteria Few /HPF (0-FEW) Urine Mucus Slight /LPF White Blood Count 5.6 x10^3/uL (4.0-11.0) Red Blood Count 3.64 x10^6/uL (3.50-5.40) Hemoglobin 11.4 g/dL (12.0-15.5) Hematocrit 34.0 % (36.0-47.0) Mean Corpuscular Volume 93 fL (79-100) Mean Corpuscular Hemoglobin 31 pg (25-35) Mean Corpuscular Hemoglobin Concent 34 g/dL (31-37) Red Cell Distribution Width 12.8 % (11.5-14.5) Platelet Count 188 x10^3/uL (140-400) Neutrophils (%) (Auto) 63 % (31-73) Lymphocytes (%) (Auto) 24 % (24-48) Monocytes (%) (Auto) 10 % (0-9) Eosinophils (%) (Auto) 3 % (0-3) Basophils (%) (Auto) 1 % (0-3) Neutrophils # (Auto) 3.5 x10^3uL (1.8-7.7) Lymphocytes # (Auto) 1.3 x10^3/uL (1.0-4.8) Monocytes # (Auto) 0.6 x10^3/uL (0.0-1.1) Eosinophils # (Auto) 0.2 x10^3/uL (0.0-0.7) Basophils # (Auto) 0.0 x10^3/uL (0.0-0.2) Sodium Level 146 mmol/L (136-145) Potassium Level 3.2 mmol/L (3.5-5.1) Chloride Level 111 mmol/L (98-107) Carbon Dioxide Level 23 mmol/L (21-32) Anion Gap 12 (6-14) Blood Urea Nitrogen 13 mg/dL (7-20) Creatinine 1.0 mg/dL (0.6-1.0) Estimated GFR (Cockcroft-Gault) 52.3 Glucose Level 81 mg/dL (70-99) Calcium Level 8.9 mg/dL (8.5-10.1) Medications Current Medications Sodium Chloride 1,000 ml @ 1,000 mls/hr Q1H IV Last administered on 02/11/19at 11:12; Start 02/11/19 at 10:27; Stop 02/11/19 at 11:26; Status DC Iohexol (Omnipaque 300 Mg/ml) 60 ml 1X ONCE IV Last administered on 02/11/19at 12:35; Start 02/11/19 at 12:00; Stop 02/11/19 at 12:01; Status DC Iohexol (Omnipaque 240 Mg/ml) 50 ml 1X ONCE PO Last administered on 02/11/19at 12:00; Start 02/11/19 at 12:00; Stop 02/11/19 at 12:01; Status DC Ceftriaxone Sodium (Rocephin) 1 gm 1X ONCE IVP Last administered on 02/11/19at 14:32; Start 02/11/19 at 13:30; Stop 02/11/19 at 13:31; Status DC Ondansetron HCl (Zofran) 4 mg PRN Q6HRS PRN IV NAUSEA/VOMITING; Start 02/11/19 at 13:45 Prochlorperazine Edisylate (Compazine) 10 mg PRN Q6HRS PRN IV NAUSEA/VOMITING; Start 02/11/19 at 13:45 Al Hydroxide/Mg Hydroxide (Mylanta Plus Xs) 30 ml PRN Q3HRS PRN PO HEARTBURN / GAS; Start 02/11/19 at 13:45 Calcium Carbonate/ Glycine (Tums) 500 mg PRN Q3HRS PRN PO UPSET STOMACH; Start 02/11/19 at 13:45 Oxycodone HCl (Roxicodone) 5 mg PRN Q3HRS PRN PO BREAKTHROUGH PAIN; Start 02/11/19 at 13:45 Morphine Sulfate (Morphine Sulfate) 2 mg PRN Q2HR PRN IV PAIN; Start 02/11/19 at 13:45 Acetaminophen (Tylenol) 650 mg PRN Q6HRS PRN PO Headaches, Temp > 101.5F; Start 02/11/19 at 13:45 Loperamide HCl (Imodium) 2 mg PRN Q15MIN PRN PO DIARRHEA Last administered on 02/12/19at 09:29; Start 02/11/19 at 13:45 Hydralazine HCl (Apresoline Inj) 10 mg PRN Q4HRS PRN IVP ELEVATED BP, SEE COMMENTS; Start 02/11/19 at 13:45 Temazepam (Restoril) 7.5 mg PRN QHS PRN PO INSOMNIA; Start 02/11/19 at 13:45 Pantoprazole Sodium (Protonix) 40 mg DAILYAC PO Last administered on 02/12/19at 09:28; Start 02/11/19 at 16:30 Furosemide (Lasix) 40 mg DAILY PO Last administered on 02/12/19 09:28; Start 02/11/19 at 14:30 Metoprolol Succinate (Toprol Xl) 100 mg DAILY PO Last administered on 02/12/19 09:28; Start 02/11/19 at 14:30 Sodium Chloride 1,000 ml @ 75 mls/hr 1X ONCE IV Last administered on 02/11/19at 13:45; Start 02/11/19 at 13:45; Stop 02/12/19 at 03:04; Status DC Levothyroxine Sodium (Synthroid) 25 mcg DAILY06 PO Last administered on 02/12/19at 05:40; Start 02/12/19 at 06:00 Oxycodone/ Acetaminophen (Percocet 5/325) 1 tab PRN Q4HRS PRN PO PAIN; Start 02/11/19 at 13:45 Lactobacillus Rhamnosus (Culturelle) 1 cap BID PO Last administered on 02/12/19 09:27; Start 02/11/19 at 21:00 Multivitamins (Thera M Plus) 1 tab DAILY PO Last administered on 02/12/19at 09:28; Start 02/12/19 at 09:00 Potassium Chloride (Klor-Con) 40 meq 1X ONCE PO Last administered on 02/12/19 09:27; Start 02/12/19 at 08:00; Stop 02/12/19 at 08:02; Status DC Active Scripts Active Reported Cymbalta (Duloxetine Hcl) 30 Mg Capsule.dr 1 Cap PO DAILY Cranberry (Cranberry Extract) 425 Mg Capsule 425 Mg PO DAILY Probiotic (Lactobacillus Acidophilus) 1 Each Capsule 1 Each PO DAILY Vitamin D3 (Cholecalciferol (Vitamin D3)) 5,000 Unit Tablet 5,000 Unit PO DAILY Percocet 5-325 Mg Tablet (Oxycodone/Acetaminophen) 1 Each Tablet 1 Tab PO PRN Q6HRS PRN Levothyroxine Sodium 25 Mcg Tablet 1 Tab PO DAILY Centrum Silver Tablet (Multivits-Min/Fa/Lycopene/Lut) 1 Each Tablet 1 Each PO DAILY Metoprolol Tartrate 100 Mg Tablet 1 Tab PO DAILY Furosemide 40 Mg Tablet 1 Tab PO DAILY Protonix (Pantoprazole Sodium) 20 Mg Tablet.dr 2 Tab PO DAILY Potassium Chloride 20 Meq Tablet.er 40 Meq PO DAILY Vitals/I & O Vital Sign - Last 24 Hours 02/11/19 02/11/19 02/11/19 02/11/19 12:00 13:00 14:00 15:00 Pulse 64 66 70 Resp 16 15 15 B/P (MAP) 178/73 (108) 164/68 (100) 144/60 (88) Pulse Ox 99 98 99 O2 Delivery Room Air Room Air Room Air Room Air 02/11/19 02/11/19 02/11/19 02/11/19 15:55 16:42 19:00 19:44 Temp 98.3 97.6 98.3 97.6 Pulse 64 64 62 Resp 13 13 B/P (MAP) 109/45 (66) 109/45 117/45 (69) Pulse Ox 97 92 O2 Delivery Room Air Room Air Room Air 02/11/19 02/12/19 02/12/19 02/12/19 23:00 03:00 07:00 09:28 Temp 98.7 98.3 98.1 98.7 98.3 98.1 Pulse 59 66 63 63 Resp 13 13 16 B/P (MAP) 118/92 (101) 126/53 (77) 125/52 (76) 125/52 Pulse Ox 98 96 96 O2 Delivery Room Air Room Air Room Air Intake and Output 02/11/19 02/11/19 02/12/19 15:00 23:00 07:00 Intake Total 1000 ml 120 ml Output Total 0 ml Balance 1000 ml 120 ml 0 ml JAAY BOURGEOIS III DO Feb 12, 2019 11:56
--- NOTE | 2019-02-12 13:11 | NUR ---
SW following for discharge planning. Discussed with RN, pt is from home with , having a lot of diarrhea, on regular diet. RN advised no SW needs at this time. SW will continue to follow.
[2019-02-12] MEDS ORDERED: cefTRIAXone IV Push 1 GM VIAL. IVP SCH (14:00)
[2019-02-12 15:00] VITALS: BP 145/64
[2019-02-12 19:00] VITALS: BP 145/47
[2019-02-12 23:00] VITALS: BP 130/49
[2019-02-13 03:00] VITALS: BP 128/53
[2019-02-13 04:49] LABS: BASO # 0.1 x10^3/uL (0.0-0.2); BASO % 1 % (0-3); EOS # 0.2 x10^3/uL (0.0-0.7); EOS % 4 % (0-3); HEMATOCRIT 33.3 % (36.0-47.0); HEMOGLOBIN 11.5 g/dL (12.0-15.5); LYMPH # 1.2 x10^3/uL (1.0-4.8); LYMPH % 20 % (24-48); MEAN CORPUSCULAR HEMOGLOBIN 32 pg (25-35); MEAN CORPUSCULAR HGB CONC 35 g/dL (31-37); MEAN CORPUSCULAR VOLUME 92 fL (79-100); MONO # 0.7 x10^3/uL (0.0-1.1); MONO % 11 % (0-9); NEUT # 4.1 x10^3uL (1.8-7.7); NEUT % 65 % (31-73); PLATELET COUNT 187 x10^3/uL (140-400); RED CELL DISTRIBUTION WIDTH 12.7 % (11.5-14.5); WHITE BLOOD COUNT 6.3 x10^3/uL (4.0-11.0)
[2019-02-13 04:58] LABS: CREATININE 1.4 mg/dL (0.6-1.0); GFR 35.5; POTASSIUM 3.2 mmol/L (3.5-5.1)
[2019-02-13] MEDS: LEVOTHYROXINE 25 MCG TABLET. PO SCH (06:05)
[2019-02-13 07:00] VITALS: BP 132/58
[2019-02-13] MEDS ORDERED: POTASSIUM CHLORIDE 20 MEQ TABLET.ER. PO ONE (08:45)
[2019-02-13] MEDS: PANTOPRAZOLE 40 MG TABLET.DR. PO SCH (08:49)
[2019-02-13] MEDS: MULTIVITAMIN with MINERAL TABLET. PO SCH (08:49)
[2019-02-13] MEDS: METOPROLOL SUCC 24HR ER 100 MG TAB.ER.24H. PO SCH (08:53)
[2019-02-13] MEDS: LACTOBACILLUS RHAMNOSUS GG 1 CAPSULE. PO SCH (08:54)
--- NOTE | 2019-02-13 09:55 | PDOC3 ---
Discharge Summary Visit Information Date of Admission: Feb 11, 2019 Date of Discharge: Feb 13, 2019 Admitting Diagnosis Comment: Gastroenteritis/diarrhea-C. difficile negative MIld dilated CBD with unknown clinical significance Chronic hypokalemia sec to lasix too Final Diagnosis Problems Medical Problems: (1) Abnormal CAT scan Status: Acute (2) Urinary tract infection Status: Acute Brief Hospital Course Allergies Allergies Coded Allergies Type Severity Reaction Last Updated Verified gabapentin Allergy Intermediate 02/11/19 Yes levofloxacin Allergy Intermediate 02/11/19 Yes prednisone Allergy Intermediate 02/11/19 Yes simvastatin Allergy Intermediate 02/11/19 Yes Vital Signs Vital Signs Date Time Temp Pulse Resp B/P (MAP) Pulse Ox O2 Delivery O2 Flow Rate FiO2 02/13/19 08:53 64 136/45 02/13/19 07:00 97.8 51 97 Room Air 97.8 02/12/19 20:00 97.0 Lab Results Laboratory Tests Test 02/11/19 10:45 02/11/19 11:01 02/11/19 12:26 02/12/19 04:30 White Blood Count 6.4 x10^3/uL (4.0-11.0) 5.6 x10^3/uL (4.0-11.0) Red Blood Count 4.09 x10^6/uL (3.50-5.40) 3.64 x10^6/uL (3.50-5.40) Hemoglobin 12.8 g/dL (12.0-15.5) 11.4 g/dL (12.0-15.5) Hematocrit 37.8 % (36.0-47.0) 34.0 % (36.0-47.0) Mean Corpuscular Volume 92 fL (79-100) 93 fL (79-100) Mean Corpuscular Hemoglobin 31 pg (25-35) 31 pg (25-35) Mean Corpuscular Hemoglobin Concent 34 g/dL (31-37) 34 g/dL (31-37) Red Cell Distribution Width 12.7 % (11.5-14.5) 12.8 % (11.5-14.5) Platelet Count 216 x10^3/uL (140-400) 188 x10^3/uL (140-400) Neutrophils (%) (Auto) 74 % (31-73) 63 % (31-73) Lymphocytes (%) (Auto) 15 % (24-48) 24 % (24-48) Monocytes (%) (Auto) 8 % (0-9) 10 % (0-9) Eosinophils (%) (Auto) 2 % (0-3) 3 % (0-3) Basophils (%) (Auto) 1 % (0-3) 1 % (0-3) Neutrophils # (Auto) 4.8 x10^3uL (1.8-7.7) 3.5 x10^3uL (1.8-7.7) Lymphocytes # (Auto) 1.0 x10^3/uL (1.0-4.8) 1.3 x10^3/uL (1.0-4.8) Monocytes # (Auto) 0.5 x10^3/uL (0.0-1.1) 0.6 x10^3/uL (0.0-1.1) Eosinophils # (Auto) 0.1 x10^3/uL (0.0-0.7) 0.2 x10^3/uL (0.0-0.7) Basophils # (Auto) 0.0 x10^3/uL (0.0-0.2) 0.0 x10^3/uL (0.0-0.2) Sodium Level 141 mmol/L (136-145) 146 mmol/L (136-145) Potassium Level 3.8 mmol/L (3.5-5.1) 3.2 mmol/L (3.5-5.1) Chloride Level 105 mmol/L (98-107) 111 mmol/L (98-107) Carbon Dioxide Level 26 mmol/L (21-32) 23 mmol/L (21-32) Anion Gap 10 (6-14) 12 (6-14) Blood Urea Nitrogen 17 mg/dL (7-20) 13 mg/dL (7-20) Creatinine 1.1 mg/dL (0.6-1.0) 1.0 mg/dL (0.6-1.0) Estimated GFR (Cockcroft-Gault) 46.9 52.3 BUN/Creatinine Ratio 15 (6-20) Glucose Level 95 mg/dL (70-99) 81 mg/dL (70-99) Lactic Acid Level 1.0 mmol/L (0.4-2.0) Calcium Level 9.5 mg/dL (8.5-10.1) 8.9 mg/dL (8.5-10.1) Total Bilirubin 1.1 mg/dL (0.2-1.0) Aspartate Amino Transf (AST/SGOT) 25 U/L (15-37) Alanine Aminotransferase (ALT/SGPT) 21 U/L (14-59) Alkaline Phosphatase 73 U/L (46-116) Total Protein 7.0 g/dL (6.4-8.2) Albumin 3.2 g/dL (3.4-5.0) Albumin/Globulin Ratio 0.8 (1.0-1.7) Lipase 67 U/L (73-393) Stool Occult Blood Positive (NEG) Clostridium difficile Toxin B Gene Negative (Negative) Urine Collection Type Unknown Urine Color Yellow Urine Clarity Clear Urine pH 5.0 Urine Specific [place] <=1.005 Urine Protein Negative mg/dL (NEG-TRACE) Urine Glucose (UA) Negative mg/dL (NEG) Urine Ketones (Stick) Negative mg/dL (NEG) Urine Blood Negative (NEG) Urine Nitrite Negative (NEG) Urine Bilirubin Negative (NEG) Urine Urobilinogen Dipstick 0.2 mg/dL (0.2 mg/dL) Urine Leukocyte Esterase Moderate (NEG) Urine RBC Occ /HPF (0-2) Urine WBC 11-20 /HPF (0-4) Urine Squamous Epithelial Cells Few /LPF Urine Transitional Epithelial Cells Occ /LPF Urine Bacteria Few /HPF (0-FEW) Urine Mucus Slight /LPF Test 02/13/19 04:10 White Blood Count 6.3 x10^3/uL (4.0-11.0) Red Blood Count 3.60 x10^6/uL (3.50-5.40) Hemoglobin 11.5 g/dL (12.0-15.5) Hematocrit 33.3 % (36.0-47.0) Mean Corpuscular Volume 92 fL (79-100) Mean Corpuscular Hemoglobin 32 pg (25-35) Mean Corpuscular Hemoglobin Concent 35 g/dL (31-37) Red Cell Distribution Width 12.7 % (11.5-14.5) Platelet Count 187 x10^3/uL (140-400) Neutrophils (%) (Auto) 65 % (31-73) Lymphocytes (%) (Auto) 20 % (24-48) Monocytes (%) (Auto) 11 % (0-9) Eosinophils (%) (Auto) 4 % (0-3) Basophils (%) (Auto) 1 % (0-3) Neutrophils # (Auto) 4.1 x10^3uL (1.8-7.7) Lymphocytes # (Auto) 1.2 x10^3/uL (1.0-4.8) Monocytes # (Auto) 0.7 x10^3/uL (0.0-1.1) Eosinophils # (Auto) 0.2 x10^3/uL (0.0-0.7) Basophils # (Auto) 0.1 x10^3/uL (0.0-0.2) Sodium Level 145 mmol/L (136-145) Potassium Level 3.2 mmol/L (3.5-5.1) Chloride Level 109 mmol/L (98-107) Carbon Dioxide Level 26 mmol/L (21-32) Anion Gap 10 (6-14) Blood Urea Nitrogen 15 mg/dL (7-20) Creatinine 1.4 mg/dL (0.6-1.0) Estimated GFR (Cockcroft-Gault) 35.5 Glucose Level 105 mg/dL (70-99) Calcium Level 9.0 mg/dL (8.5-10.1) Laboratory Tests Test 02/13/19 04:10 White Blood Count 6.3 x10^3/uL (4.0-11.0) Red Blood Count 3.60 x10^6/uL (3.50-5.40) Hemoglobin 11.5 g/dL (12.0-15.5) Hematocrit 33.3 % (36.0-47.0) Mean Corpuscular Volume 92 fL (79-100) Mean Corpuscular Hemoglobin 32 pg (25-35) Mean Corpuscular Hemoglobin Concent 35 g/dL (31-37) Red Cell Distribution Width 12.7 % (11.5-14.5) Platelet Count 187 x10^3/uL (140-400) Neutrophils (%) (Auto) 65 % (31-73) Lymphocytes (%) (Auto) 20 % (24-48) Monocytes (%) (Auto) 11 % (0-9) Eosinophils (%) (Auto) 4 % (0-3) Basophils (%) (Auto) 1 % (0-3) Neutrophils # (Auto) 4.1 x10^3uL (1.8-7.7) Lymphocytes # (Auto) 1.2 x10^3/uL (1.0-4.8) Monocytes # (Auto) 0.7 x10^3/uL (0.0-1.1) Eosinophils # (Auto) 0.2 x10^3/uL (0.0-0.7) Basophils # (Auto) 0.1 x10^3/uL (0.0-0.2) Sodium Level 145 mmol/L (136-145) Potassium Level 3.2 mmol/L (3.5-5.1) Chloride Level 109 mmol/L (98-107) Carbon Dioxide Level 26 mmol/L (21-32) Anion Gap 10 (6-14) Blood Urea Nitrogen 15 mg/dL (7-20) Creatinine 1.4 mg/dL (0.6-1.0) Estimated GFR (Cockcroft-Gault) 35.5 Glucose Level 105 mg/dL (70-99) Calcium Level 9.0 mg/dL (8.5-10.1) Brief Hospital Course Ms. Espinoza is a 88 old [sex] who presented with [ ] Very pleasant 88-year-old white female lives at home with , diarrhea for 10 days. Tried Imodium, temporary relief only. . No blood in stool. Hx c diff Bremer 5 or 10 yrs ago. Hemoccult positive. So far elytes okay except for creatinine 1.1 ? UTI on UA. Blood pressure on the high side, heart rate 63. History of hyperten bernard on meds. LAst colonoscopy was 5 years ago was told normal. Dr Titus - GI Her home meds including PPI 40 Lasix 40 once a day metoprolol 100 once a day Centrum Silver, Synthroid 25 micral grams a day potassium supplements 20 twice a day oxycodone when necessary probiotic vitamin B complex and cranberry pill COURSE: c diff neg. LBM down to 2x a day,. Keepin PO. Im ok to ri home, inc OFI, imodium OTC HOld lasix x 5 days till diarrhea further gets better Discharge Information Condition at Discharge: Improved, Stable Follow Up: Weeks (PCP if no better or gets worse) Disposition/Orders: D/C to Home Scheduled Cholecalciferol (Vitamin D3) (Vitamin D3) 5,000 Unit Tablet, 5,000 UNIT PO DAILY for low vit d, (Reported) Entered as Reported by: MIGNON NEW on 02/11/191702 Last Action: New Order on 02/11/191702 by MIGNON NEW Cranberry Extract (Cranberry) 425 Mg Capsule, 425 MG PO DAILY for supp, (Reported) Entered as Reported by: MIGNON NEW on 02/11/191702 Last Action: New Order on 02/11/191702 by MIGNON NEW Duloxetine Hcl (Cymbalta) 30 Mg Capsule.dr, 1 CAP PO DAILY for dep, #30 Ref 5 (Reported) Entered as Reported by: MIGNON NEW on 02/11/191702 Last Action: New Order on 02/11/191702 by MIGNON NEW Furosemide (Furosemide) 40 Mg Tablet, 1 TAB PO DAILY for htn, #30 Ref 5 (Reported) Entered as Reported by: MIGNON NEW on 02/11/191702 Last Action: New Order on 02/11/191702 by MIGNON NEW Lactobacillus Acidophilus (Probiotic) 1 Each Capsule, 1 EACH PO DAILY for supplement, (Reported) Entered as Reported by: MIGNON NEW on 02/11/191702 Last Action: New Order on 02/11/191702 by MIGNON NEW Levothyroxine Sodium (Levothyroxine Sodium) 25 Mcg Tablet, 1 TAB PO DAILY for hypothyroid, #30 Ref 5 (Reported) Entered as Reported by: MIGNON NEW on 02/11/191702 Last Action: New Order on 02/11/191702 by MIGNON NEW Metoprolol Tartrate (Metoprolol Tartrate) 100 Mg Tablet, 1 TAB PO DAILY for htn, #60 Ref 5 (Reported) Entered as Reported by: MIGNON NEW on 02/11/191702 Last Action: New Order on 02/11/191702 by MIGNON NEW Multivits-Min/Fa/Lycopene/Lut (Centrum Silver Tablet) 1 Each Tablet, 1 EACH PO DAILY for mvi, (Reported) Entered as Reported by: MIGNON NEW on 02/11/191702 Last Action: New Order on 02/11/191702 by MIGNON NEW Pantoprazole Sodium (Protonix) 20 Mg Tablet.dr, 2 TAB PO DAILY for gerd, #90 Ref 3 (Reported) Entered as Reported by: MIGNON NEW on 02/11/191702 Last Action: New Order on 02/11/191702 by MIGNON NEW Potassium Chloride (Potassium Chloride) 20 Meq Tablet.er, 40 MEQ PO DAILY for hypokalemia, (Reported) Entered as Reported by: MIGNON NEW on 02/11/191654 Last Action: New Order on 02/11/191654 by MIGNON NEW Scheduled PRN Oxycodone/Apap 5-325 (Percocet 5-325 Mg Tablet ) 1 Each Tablet, 1 TAB PO PRN Q6HRS PRN for PAIN, Ref 0 (Reported) Entered as Reported by: MIGNON NEW on 02/11/191702 Last Action: New Order on 02/11/191702 by SRUTHI AGGARWAL MD Feb 13, 2019 09:55
--- NOTE | 2019-02-13 10:36 | NUR ---
SW following for discharge planning. Discussed with Rn, pt has discharge order in to discharge home with self care if okay with GI. RN advised no SW needs.
--- NOTE | 2019-02-13 10:54 | PDOC ---
Subjective: Subjective: Better, would like to go home. Objective: Objective: Colonoscopy by Dr. Titus on 08/22/08 for diarrhea: 3x4mm sessile adenomatous cecal polyp and normal random colon biopsies. RN asks if DC okay. 2 stools charted. Vital Signs: Vital Signs Date Time Temp Pulse Resp B/P (MAP) Pulse Ox O2 Delivery O2 Flow Rate FiO2 02/13/19 08:53 64 136/45 02/13/19 07:00 97.8 51 97 Room Air 97.8 02/12/19 20:00 97.0 Labs: Laboratory Tests Test 02/13/19 04:10 White Blood Count 6.3 x10^3/uL Red Blood Count 3.60 x10^6/uL Hemoglobin 11.5 g/dL Hematocrit 33.3 % Mean Corpuscular Volume 92 fL Mean Corpuscular Hemoglobin 32 pg Mean Corpuscular Hemoglobin Concent 35 g/dL Red Cell Distribution Width 12.7 % Platelet Count 187 x10^3/uL Neutrophils (%) (Auto) 65 % Lymphocytes (%) (Auto) 20 % Monocytes (%) (Auto) 11 % Eosinophils (%) (Auto) 4 % Basophils (%) (Auto) 1 % Neutrophils # (Auto) 4.1 x10^3uL Lymphocytes # (Auto) 1.2 x10^3/uL Monocytes # (Auto) 0.7 x10^3/uL Eosinophils # (Auto) 0.2 x10^3/uL Basophils # (Auto) 0.1 x10^3/uL Sodium Level 145 mmol/L Potassium Level 3.2 mmol/L Chloride Level 109 mmol/L Carbon Dioxide Level 26 mmol/L Anion Gap 10 Blood Urea Nitrogen 15 mg/dL Creatinine 1.4 mg/dL Estimated GFR (Cockcroft-Gault) 35.5 Glucose Level 105 mg/dL Calcium Level 9.0 mg/dL FECAL WBC,GRAM STAIN Final WBCS NONE PRESENT COMMENTS MODERATE YEAST OBSERVED PE: GEN: NAD, up to chair, friendly LUNGS: CTAB HEART: RRR ABD: S/ND/NT NEURO/PSYCH: A & O 3 A/P: Diarrhea -possibly related to recent antibiotic use, C Diff neg. -seems h/o same (previous colonoscopy as above) -- Okay to DC per GI. Our office will contact re: outpt colonoscopy considering h/o adenomatous polyp and recurrent diarrhea. MARISA BUCKNER Feb 13, 2019 10:54
[2019-02-13 11:00] VITALS: BP 139/66
--- NOTE | 2019-02-13 12:40 | NUR ---
DISCHARGE INSTRUCTIONS GIVEN, QUESTIONS AND CONCERNS ANSWERED, PATIENT VERBALIZED UNDERSTANDING OF DISCHARGE INFORMATION INCLUDING TAKING ALL MEDICATIONS INSTRUCTED AND FOLLOWING UP WITH HER PRIMARY PROVIDER AND DR. OCHOA INSTRUCTED. ALL PERSONAL BELONGINGS GATHERED BY THE PATIENT AND PLACED IN BAGS FOR DISCHARGE.
--- NOTE | 2019-02-13 12:45 | NUR ---
PATIENT LEAVES THE UNIT PER W/C ACCOMPANIED BY THIS SPONGE DIVER AND ALONGSIDE HER SPOUSE, FOLLOW UP APPOINTMENTS ENCOURAGED, EMOTIONAL SUPPORT GIVEN.
[2019-02-14] MEDS ORDERED: POTASSIUM CHLORIDE 20 MEQ TABLET.ER. PO SCH (08:00)
== END 2019-02-13 12:45 | disposition home or self-care (01) | DRG 391 ==
LOC: ER 09:16 → 4 NORTH 13:28
PROVIDERS: ADMIT Internal Medicine; ATTEND Internal Medicine
DX: K52.9 Noninfective gastroenteritis and colitis, unspecified (principal); N17.0 Acute kidney failure with tubular necrosis; N39.0 Urinary tract infection, site not specified; K57.90 Diverticulosis of intestine, part unspecified, without perforation or abscess without bleeding; I10 Essential (primary) hypertension; E03.9 Hypothyroidism, unspecified; G89.29 Other chronic pain; K21.9 Gastro-esophageal reflux disease without esophagitis; Z79.891 Long term (current) use of opiate analgesic; Z82.49 Family history of ischemic heart disease and other diseases of the circulatory system; Z87.440 Personal history of urinary (tract) infections; Z90.49 Acquired absence of other specified parts of digestive tract; Z90.710 Acquired absence of both cervix and uterus; Z88.1 Allergy status to other antibiotic agents; Z88.8 Allergy status to other drugs, medicaments and biological substances; R13.10 Dysphagia, unspecified
CPT/HCPCS: 36415; 74177; 80048; 80053; 81001; 82274; 83605; 83690; 84260; 85025; 87086; 87205; 87493; 96361; 96374; J0696; J7030; Q9966; Q9967; 99285-25

== ENCOUNTER 2020-01-21 16:13 | Inpatient (IN) | payer MEDICARE, OTHER ==
[~2020-01-21] VITALS: Ht 160 cm; Wt 65.0 kg
[~2020-01-21 16:13] MED LIST: ACET650S11 PR; ATRO2DRO3 SL; CHOL500016 PO; CRAN425C3 PO; DULO30CA2 PO; FURO10VI IVP; FURO40TA4 PO; LACT1CAP6 PO; LEVO25TA4 PO; LORA2ORA7 SL; LORA2VIA IVP; METO100T7 PO; MORP100S3 SL; MORP4CAR IVP; MULT-658 PO; NA P133E6 PR; OXYC1TAB15 PO; PANT20TA2 PO; POTA20TA4 PO
--- NOTE | 2020-01-21 18:15 | NUR ---
Transferred from [address] [place] [address] by bed. None responsive, O2 at 2l per n/c. On a P500 bed. Turned on left side. Side rails up x's 4 with call light at bedside. Meza intact and draining yellow urine dd. SHIRLEY's on bilaterally. Dressing d/i on left hip. No distress noted.
[2020-01-21] MEDS ORDERED: LORazepam 1 MG TABLET PO PRN (18:45)
[2020-01-21] MEDS ORDERED: ACETAMINOPHEN 650 MG SUPP.RECT. PR PRN (18:45)
[2020-01-21] MEDS ORDERED: PROMETHAZINE 25 MG SUPP.RECT. PR PRN (18:45)
[2020-01-21] MEDS ORDERED: BISACODYL 10 MG SUPP.RECT. PR PRN (18:45)
[2020-01-21 19:57] VITALS: BP 147/63
[2020-01-22] MEDS: MORPHINE SULFATE 20 MG/ML CONC SOLUTION. SL PRN (02:35)
[2020-01-22 03:21] VITALS: BP 177/63
[2020-01-22 07:00] VITALS: BP 135/51
--- NOTE | 2020-01-22 08:54 | PDOC1 ---
History and Physical Date of Admission Date of Admission DATE: 01/22/20 TIME: 08:52 Identification/Chief Complaint Chief Complaint CVA Source Source: Caregiver, Chart review History of Present Illness History of Present Illness Ms Espinoza is an 89yo F w/ PMHx HTN, GERD, diverticulosis, C Diff, chronic back pain, hypothyroidism, UTIs, spinal nerve stimulator, pacemaker who p/w a fall onto her left side, found with left hip fracture s/p ORIF with prosthesis on 01/14/2020. at about 8:30 there was first mentioned in the nurses notes of some neurological changes with right sided weakness. The patient had right-sided weakness and seizure activity early the morning of 01/15/2020 and a rapid response was called. She had a head CT abnormal with signs of left frontal/insular CVA. Neurology was consulted. Noted with fevers 101.8F on 01/18 at 0715 x1, noted with aspiration events. ID consulted Follows very few verbal or visual cues. Not picking up right hand or leg, not moving left leg. Will move left thumb. Not initiating swallowing. Discussed with both daughters and the overall poor prognosis, they will call back regarding further goals of care but do not currently want PEG placed as this was not in line with her wishes and family made her wishes clear to have comfort measures only, discontinue antibiotics and d/c aggressive measures. Admitted to inpatient hospice for left frontal CVA care. Past Medical History Cardiovascular: AFIB, HTN Pulmonary: Pneumonia GI: Diverticulosis, GERD, Other Musculoskeletal: Osteoarthritis Renal/: UTI Endocrine: Hypothyroidism Past Surgical History Past Surgical History: Pacemaker, Cholecystectomy, Hysterectomy, Other Family History Family History: Alzheimer's Disease, Hypertension Social History Smoke: No ALCOHOL: none Drugs: None Current Medications Current Medications Current Medications Morphine Sulfate (Roxanol Conc) 5 mg PRN Q2HRS PRN SL SOA/MOD-SEVERE PAIN Last administered on 01/22/20at 02:35; Start 01/21/20 at 18:45 Morphine Sulfate (Morphine Sulfate) 1 mg PRN Q2HR PRN IV SOA/PAIN; Start 01/21/20 at 18:45 Lorazepam (Ativan) 1 mg PRN Q4HRS PRN PO ANXIETY / AGITATION; Start 01/21/20 at 18:45 Bisacodyl (Dulcolax Supp) 10 mg PRN DAILY PRN [place] CONSTIPATION; Start 01/21/20 at 18:45 Promethazine HCl (Phenergan Supp) 25 mg PRN Q4HRS PRN NV NAUSEA/VOMITING; Start 01/21/20 at 18:45 Acetaminophen (Tylenol Supp) 650 mg PRN Q4HRS PRN NV MILD PAIN / TEMP; Start 01/21/20 at 18:45 Active Scripts Active Enema (Na Phos,M-B/Na Phos,Di-Ba) 133 Ml Enema 133 Ml NV PRN DAILY PRN 30 Days Atropine Sulfate 2 Ml Drops 1 Drop SL PRN Q2HR PRN 30 Days Furosemide 10 Mg/1 Ml Vial 40 Mg IVP PRN DAILY PRN 30 Days Lorazepam 2 Mg/1 Ml Vial 2 Mg IVP PRN Q4HRS PRN 30 Days Lorazepam Intensol (Lorazepam) 2 Mg/1 Ml Oral.conc 1 Mg SL PRN Q6HRS PRN 30 Days Acetaminophen Supp (Acetaminophen) 650 Mg Supp.rect 650 Mg NV PRN Q6HRS PRN 30 Days Morphine Sulfate 100 Mg/5 Ml Solution 4 Mg SL PRN Q3HRS PRN 30 Days Morphine Sulfate 4 Mg/1 Ml Cartridge 4 Mg IVP PRN Q2HR PRN 30 Days Allergies Allergies: Coded Allergies: gabapentin (Verified Allergy, Intermediate, 02/11/19) levofloxacin (Verified Allergy, Intermediate, 02/11/19) prednisone (Verified Allergy, Intermediate, 02/11/19) simvastatin (Verified Allergy, Intermediate, 02/11/19) ROS Review of System Unable to obtain due to non-verbal state Physical Exam General: No acute distress, Other (Not verbally responsive, does not track or follow commands) HEENT: Atraumatic, PERRLA, Mucous membr. moist/pink, Other (Leftward deviated gaze) Lungs: Other (Bilateral coarse rhonchi) Heart: irregularly irregular Abdomen: Normal bowel sounds, Soft, No tenderness, No hepatosplenomegaly, No masses Neuro: Reflexes 2+, Other (Dense right hemiparesis, spontaneously moving left hand) Psych/Mental Status: Other (Not communicating) Vitals Vitals Vital Signs Date Time Temp Pulse Resp B/P (MAP) Pulse Ox O2 Delivery O2 Flow Rate FiO2 01/22/20 08:20 Nasal Cannula 2.0 01/22/20 07:00 100.8 91 16 135/51 (79 99 100.8 VTE Prophylaxis Ordered VTE Prophylaxis Devices: No VTE Pharmacological Prophylaxi: No Assessment/Plan Assessment/Plan A/P: New left frontal/insular CVA - comfort care. Inpatient hospice. Unable to swallow or follow commands Dysphagia - not clearing her own secretions. 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 Still on 4L Syncope Chronic back pain - nerve stimulator (back), mult back surgeries, bilat foot surgery Low back pain, Osteoarthritis FEVERS FEN - NPO, comfort feeding if possible Dispo - inpatient hospice, actively dying GHADA WARREN MD Jan 22, 2020 08:54
[2020-01-22] MEDS ORDERED: ATROPINE 1% OPHTH SOLUTION 5ML BOTTLE. SL PRN (13:45)
[2020-01-22] MEDS: SCOPOLAMINE 1.5MG PATCH. TD SCH (14:02)
[2020-01-22 19:00] VITALS: BP 166/95
[2020-01-23] MEDS: MORPHINE SULFATE 20 MG/ML CONC SOLUTION. SL PRN ×2 (03:27→22:13)
[2020-01-23 07:00] VITALS: BP 116/54
--- NOTE | 2020-01-23 10:41 | PDOC ---
PROGRESS NOTES Chief Complaint Chief Complaint A/P: New left frontal/insular CVA - comfort care. Inpatient hospice. Unable to swallow or follow commands Dysphagia - not clearing her own secretions. 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 Still on 4L Syncope Chronic back pain - nerve stimulator (back), mult back surgeries, bilat foot surgery Low back pain, Osteoarthritis FEVERS FEN - NPO, comfort feeding if possible Dispo - inpatient hospice, actively dying History of Present Illness History of Present Illness Ms Espinoza is an 89yo F w/ PMHx HTN, GERD, diverticulosis, C Diff, chronic back pain, hypothyroidism, UTIs, spinal nerve stimulator, pacemaker who p/w a fall onto her left side, found with left hip fracture s/p ORIF with prosthesis on 01/14/2020. at about 8:30 there was first mentioned in the nurses notes of some neurological changes with right sided weakness. The patient had right-sided weakness and seizure activity early the morning of 01/15/2020 and a rapid response was called. She had a head CT abnormal with signs of left frontal/insular CVA. Neurology was consulted. Noted with fevers 101.8F on 01/18 at 0715 x1, noted with aspiration events. ID consulted Follows very few verbal or visual cues. Not picking up right hand or leg, not moving left leg. Will move left thumb. Not initiating swallowing. Discussed with both daughters and the overall poor prognosis, they will call back regarding further goals of care but do not currently want PEG placed as this was not in line with her wishes and family made her wishes clear to have comfort measures only, discontinue antibiotics and d/c aggressive measures. Admitted to inpatient hospice for left frontal CVA care. Placed on scopolamine patch and sublingual atropine with improvement in comfort and secretions. Not following commands today. No fevers Vitals Vitals Vital Signs Date Time Temp Pulse Resp B/P (MAP) Pulse Ox O2 Delivery O2 Flow Rate FiO2 01/23/20 07:00 99.4 83 20 116/54 (74) 94 Nasal Cannula 2.0 99.4 Physical Exam General: No acute distress, Other (Not verbally responsive, does not track or follow commands) Lungs: Clear, Other Abdomen: Normal bowel sounds, Soft, No tenderness, No hepatosplenomegaly, No masses Comment Review of Relevant I have reviewed the following items tigre (where applicable) has been applied. Medications Current Medications Morphine Sulfate (Roxanol Conc) 5 mg PRN Q2HRS PRN SL SOA/MOD-SEVERE PAIN Last administered on 01/23/20at 03:27; Start 01/21/20 at 18:45 Morphine Sulfate (Morphine Sulfate) 1 mg PRN Q2HR PRN IV SOA/PAIN; Start 01/21/20 at 18:45 Lorazepam (Ativan) 1 mg PRN Q4HRS PRN PO ANXIETY / AGITATION; Start 01/21/20 at 18:45 Bisacodyl (Dulcolax Supp) 10 mg PRN DAILY PRN [place] CONSTIPATION; Start 01/21/20 at 18:45 Promethazine HCl (Phenergan Supp) 25 mg PRN Q4HRS PRN [place] NAUSEA/VOMITING; Star t 01/21/20 at 18:45 Acetaminophen (Tylenol Supp) 650 mg PRN Q4HRS PRN [place] MILD PAIN / TEMP; Start 01/21/20 at 18:45 Scopolamine (Transderm-Scop) 1 patch Q3DAYS TD Last administered on 01/22/20at 14:02; Start 01/22/20 at 14:00 Atropine Sulfate (Isopto Atropine) 1 drop PRN Q2HR PRN SL SECRETIONS; Start 01/22/20 at 13:45 Active Scripts Active Enema (Na Phos,M-B/Na Phos,Di-Ba) 133 Ml Enema 133 Ml [place] PRN DAILY PRN 30 Days Atropine Sulfate 2 Ml Drops 1 Drop SL PRN Q2HR PRN 30 Days Furosemide 10 Mg/1 Ml Vial 40 Mg IVP PRN DAILY PRN 30 Days Lorazepam 2 Mg/1 Ml Vial 2 Mg IVP PRN Q4HRS PRN 30 Days Lorazepam Intensol (Lorazepam) 2 Mg/1 Ml Oral.conc 1 Mg SL PRN Q6HRS PRN 30 Days Acetaminophen Supp (Acetaminophen) 650 Mg Supp.rect 650 Mg [place] PRN Q6HRS PRN 30 Days Morphine Sulfate 100 Mg/5 Ml Solution 4 Mg SL PRN Q3HRS PRN 30 Days Morphine Sulfate 4 Mg/1 Ml Cartridge 4 Mg IVP PRN Q2HR PRN 30 Days Vitals/I & O Vital Sign - Last 24 Hours 01/22/20 01/22/20 01/23/20 01/23/20 19:00 20:00 03:27 04:27 Temp 99.7 99.7 Pulse 98 Resp 16 20 22 B/P (MAP) 166/95 (118) Pulse Ox 89 89 89 O2 Delivery Nasal Cannula Nasal Cannula Nasal Cannula Nasal Cannula O2 Flow Rate 2.0 2.0 2.0 2.0 01/23/20 07:00 Temp 99.4 99.4 Pulse 83 Resp 20 B/P (MAP) 116/54 (74) Pulse Ox 94 O2 Delivery Nasal Cannula O2 Flow Rate 2.0 Intake and Output 01/22/20 01/22/20 01/23/20 15:00 23:00 07:00 Intake Total 0 ml Output Total 250 ml 500 ml Balance -250 ml -500 ml GHADA WARREN MD Jan 23, 2020 10:41
[2020-01-23 19:15] VITALS: BP 168/63
[2020-01-23] MEDS ORDERED: KETOROLAC 15 MG/ML VIAL. IVP PRN (22:00)
--- NOTE | 2020-01-24 02:50 | NUR ---
Charted pt. weight from older medical record file.
[2020-01-24 07:00] VITALS: BP 118/52
[2020-01-24] MEDS: MORPHINE SULFATE 20 MG/ML CONC SOLUTION. SL PRN ×2 (09:49→15:01)
--- NOTE | 2020-01-24 11:32 | PDOC ---
PROGRESS NOTES Chief Complaint Chief Complaint A/P: New left frontal/insular CVA - comfort care. Inpatient hospice. Unable to swallow or follow commands Dysphagia - not clearing her own secretions. 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 Still on 4L Syncope Chronic back pain - nerve stimulator (back), mult back surgeries, bilat foot surgery Low back pain, Osteoarthritis FEVERS FEN - NPO, comfort feeding if possible Dispo - inpatient hospice, actively dying History of Present Illness History of Present Illness Ms Espinoza is an 89yo F w/ PMHx HTN, GERD, diverticulosis, C Diff, chronic back pain, hypothyroidism, UTIs, spinal nerve stimulator, pacemaker who p/w a fall onto her left side, found with left hip fracture s/p ORIF with prosthesis on 01/14/2020. at about 8:30 there was first mentioned in the nurses notes of some neurological changes with right sided weakness. The patient had right-sided weakness and seizure activity early the morning of 01/15/2020 and a rapid response was called. She had a head CT abnormal with signs of left frontal/insular CVA. Neurology was consulted. Noted with fevers 101.8F on 01/18 at 0715 x1, noted with aspiration events. ID consulted Follows very few verbal or visual cues. Not picking up right hand or leg, not moving left leg. Will move left thumb. Not initiating swallowing. Discussed with both daughters and the overall poor prognosis, they will call back regarding further goals of care but do not currently want PEG placed as this was not in line with her wishes and family made her wishes clear to have comfort measures only, discontinue antibiotics and d/c aggressive measures. Admitted to inpatient hospice for left frontal CVA care. 4/: Placed on scopolamine patch and sublingual atropine with improvement in comfort and secretions. Not following commands today. No fevers O2 saturations 96% on 2L. Not following commands, afebrile. Some movement of left hand. Not attempting to initiate any swallowing with prompting. Turned every 2 hours. No cough noted Vitals Vitals Vital Signs Date Time Temp Pulse Resp B/P (MAP) Pulse Ox O2 Delivery O2 Flow Rate FiO2 01/24/20 08:00 Nasal Cannula 2.0 01/24/20 07:00 97.8 67 16 118/52 (97) 99 97.8 Physical Exam General: No acute distress, Other (Not verbally responsive, does not track or follow commands) Lungs: Clear, Other Abdomen: Normal bowel sounds, Soft, No tenderness, No hepatosplenomegaly, No masses Comment Review of Relevant I have reviewed the following items tigre (where applicable) has been applied. Medications Current Medications Morphine Sulfate (Roxanol Conc) 5 mg PRN Q2HRS PRN SL SOA/MOD-SEVERE PAIN Last administered on 01/24/20at 09:49; Start 01/21/20 at 18:45 Morphine Sulfate (Morphine Sulfate) 1 mg PRN Q2HR PRN IV SOA/PAIN; Start 01/21/20 at 18:45 Lorazepam (Ativan) 1 mg PRN Q4HRS PRN PO ANXIETY / AGITATION; Start 01/21/20 at 18:45 Bisacodyl (Dulcolax Supp) 10 mg PRN DAILY PRN MS CONSTIPATION; Start 01/21/20 at 18:45 Promethazine HCl (Phenergan Supp) 25 mg PRN Q4HRS PRN MS NAUSEA/VOMITING; Start 01/21/20 at 18:45 Acetaminophen (Tylenol Supp) 650 mg PRN Q4HRS PRN MS MILD PAIN / TEMP; Start 01/21/20 at 18:45 Scopolamine (Transderm-Scop) 1 patch Q3DAYS TD Last administered on 01/22/20at 14:02; Start 01/22/20 at 14:00 Atropine Sulfate (Isopto Atropine) 1 drop PRN Q2HR PRN SL SECRETIONS; Start 01/22/20 at 13:45 Ketorolac Tromethamine (Toradol 15mg Vial) 15 mg PRN Q6HRS PRN IVP PAIN Last administered on 01/23/20at 22:13; Start 01/23/20 at 22:00; Stop 01/28/20 at 21:59 Active Scripts Active Enema (Na Phos,M-B/Na Phos,Di-Ba) 133 Ml Enema 133 Ml MS PRN DAILY PRN 30 Days Atropine Sulfate 2 Ml Drops 1 Drop SL PRN Q2HR PRN 30 Days Furosemide 10 Mg/1 Ml Vial 40 Mg IVP PRN DAILY PRN 30 Days Lorazepam 2 Mg/1 Ml Vial 2 Mg IVP PRN Q4HRS PRN 30 Days Lorazepam Intensol (Lorazepam) 2 Mg/1 Ml Oral.conc 1 Mg SL PRN Q6HRS PRN 30 Days Acetaminophen Supp (Acetaminophen) 650 Mg Supp.rect 650 Mg MS PRN Q6HRS PRN 30 Days Morphine Sulfate 100 Mg/5 Ml Solution 4 Mg SL PRN Q3HRS PRN 30 Days Morphine Sulfate 4 Mg/1 Ml Cartridge 4 Mg IVP PRN Q2HR PRN 30 Days Vitals/I & O Vital Sign - Last 24 Hours 01/23/20 01/23/20 01/23/20 01/23/20 19:15 20:00 22:13 23:13 Temp 99.5 99.5 Pulse 101 Resp 16 B/P (MAP) 168/63 (98) Pulse Ox 98 O2 Delivery Nasal Cannula Nasal Cannula Room Air Nasal Cannula O2 Flow Rate 2.0 2.0 01/24/20 01/24/20 07:00 08:00 Temp 97.8 97.8 Pulse 67 Resp 16 B/P (MAP) 118/52 (74) Pulse Ox 99 O2 Delivery Room Air Nasal Cannula O2 Flow Rate 2.0 Intake and Output 01/23/20 01/23/20 01/24/20 15:00 23:00 07:00 Output Total 250 ml 300 ml Balance -250 ml -300 ml GHADA WARREN MD Jan 24, 2020 11:32
[2020-01-24 19:00] VITALS: BP 146/50
[2020-01-25] MEDS: LORazepam INTENSOL 2 MG/ML ORAL.CONC SL PRN (00:52)
--- NOTE | 2020-01-25 09:40 | PDOC ---
PROGRESS NOTES Chief Complaint Chief Complaint A/P: New left frontal/insular CVA - comfort care. Inpatient hospice. Unable to swallow or follow commands Dysphagia - not clearing her own secretions. 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 Still on 4L Syncope Chronic back pain - nerve stimulator (back), mult back surgeries, bilat foot surgery Low back pain, Osteoarthritis FEVERS FEN - NPO, comfort feeding if possible Dispo - inpatient hospice, actively dying History of Present Illness History of Present Illness Ms Espinoza is an 89yo F w/ PMHx HTN, GERD, diverticulosis, C Diff, chronic back pain, hypothyroidism, UTIs, spinal nerve stimulator, pacemaker who p/w a fall onto her left side, found with left hip fracture s/p ORIF with prosthesis on 01/14/2020. at about 8:30 there was first mentioned in the nurses notes of some neurological changes with right sided weakness. The patient had right-sided weakness and seizure activity early the morning of 01/15/2020 and a rapid response was called. She had a head CT abnormal with signs of left frontal/insular CVA. Neurology was consulted. Noted with fevers 101.8F on 01/18 at 0715 x1, noted with aspiration events. ID consulted Follows very few verbal or visual cues. Not picking up right hand or leg, not moving left leg. Will move left thumb. Not initiating swallowing. Discussed with both daughters and the overall poor prognosis, they will call back regarding further goals of care but do not currently want PEG placed as this was not in line with her wishes and family made her wishes clear to have comfort measures only, discontinue antibiotics and d/c aggressive measures. Admitted to inpatient hospice for left frontal CVA care. 4/2: Placed on scopolamine patch and sublingual atropine with improvement in comfort and secretions. Not following commands today. No fevers 4/3: O2 saturations 96% on 2L. Not following commands, afebrile. Some movement of left hand. Not attempting to initiate any swallowing with prompting. Turned every 2 hours. No cough noted Not attempting to initiate any swallowing with prompting. Turned every 2 hours. No cough noted. bedside. Vitals Vitals Vital Signs Date Time Temp Pulse Resp B/P (MAP) Pulse Ox O2 Delivery O2 Flow Rate FiO2 01/24/20 20:00 Nasal Cannula 2.0 01/24/20 19:00 97.8 82 20 146/50 (82) 97 97.8 Physical Exam General: No acute distress, Other (Not verbally responsive, does not track or follow commands) Lungs: Clear, Other Abdomen: Normal bowel sounds, Soft, No tenderness, No hepatosplenomegaly, No masses Comment Review of Relevant I have reviewed the following items tigre (where applicable) has been applied. Medications Current Medications Morphine Sulfate (Roxanol Conc) 5 mg PRN Q2HRS PRN SL SOA/MOD-SEVERE PAIN Last administered on 01/24/20at 15:01; Start 01/21/20 at 18:45 Morphine Sulfate (Morphine Sulfate) 1 mg PRN Q2HR PRN IV SOA/PAIN; Start 01/21/20 at 18:45 Lorazepam (Ativan) 1 mg PRN Q4HRS PRN PO ANXIETY / AGITATION; Start 01/21/20 at 18:45 Bisacodyl (Dulcolax Supp) 10 mg PRN DAILY PRN [place] CONSTIPATION; Start 01/21/20 at 18:45 Promethazine HCl (Phenergan Supp) 25 mg PRN Q4HRS PRN [place] NAUSEA/VOMITING; Start 01/21/20 at 18:45 Acetaminophen (Tylenol Supp) 650 mg PRN Q4HRS PRN OK MILD PAIN / TEMP; Start 01/21/20 at 18:45 Scopolamine (Transderm-Scop) 1 patch Q3DAYS TD Last administered on 01/22/20at 14:02; Start 01/22/20 at 14:00 Atropine Sulfate (Isopto Atropine) 1 drop PRN Q2HR PRN SL SECRETIONS; Start 01/22/20 at 13:45 Ketorolac Tromethamine (Toradol 15mg Vial) 15 mg PRN Q6HRS PRN IVP PAIN Last administered on 01/23/20at 22:13; Start 01/23/20 at 22:00; Stop 01/28/20 at 21:59 Lorazepam (Ativan Intensol) 2 mg PRN Q3HRS PRN SL ANXIETY / AGITATION Last administered on 01/25/20at 00:52; Start 01/24/20 at 15:30 Active Scripts Active Enema (Na Phos,M-B/Na Phos,Di-Ba) 133 Ml Enema 133 Ml OK PRN DAILY PRN 30 Days Atropine Sulfate 2 Ml Drops 1 Drop SL PRN Q2HR PRN 30 Days Furosemide 10 Mg/1 Ml Vial 40 Mg IVP PRN DAILY PRN 30 Days Lorazepam 2 Mg/1 Ml Vial 2 Mg IVP PRN Q4HRS PRN 30 Days Lorazepam Intensol (Lorazepam) 2 Mg/1 Ml Oral.conc 1 Mg SL PRN Q6HRS PRN 30 Days Acetaminophen Supp (Acetaminophen) 650 Mg Supp.rect 650 Mg OK PRN Q6HRS PRN 30 Days Morphine Sulfate 100 Mg/5 Ml Solution 4 Mg SL PRN Q3HRS PRN 30 Days Morphine Sulfate 4 Mg/1 Ml Cartridge 4 Mg IVP PRN Q2HR PRN 30 Days Vitals/I & O Vital Sign - Last 24 Hours 01/24/20 01/24/20 19:00 20:00 Temp 97.8 97.8 Pulse 82 Resp 20 B/P (MAP) 146/50 (82) Pulse Ox 97 O2 Delivery Nasal Cannula Nasal Cannula O2 Flow Rate 2.0 Intake and Output 01/24/20 01/24/20 01/25/20 15:00 23:00 07:00 Output Total 125 ml Balance -125 ml GHADA WARREN MD Jan 25, 2020 09:40
[2020-01-25] MEDS: SCOPOLAMINE 1.5MG PATCH. TD SCH (10:43)
[2020-01-25] MEDS: MORPHINE SULFATE 2 MG/ML VIAL. IV PRN ×2 (11:18→13:12)
[2020-01-25 13:52] VITALS: BP 137/49
[2020-01-25 19:00] VITALS: BP 136/53
[2020-01-25] MEDS: MORPHINE SULFATE 20 MG/ML CONC SOLUTION. SL PRN (21:02)
[2020-01-26 07:00] VITALS: BP 113/40
--- NOTE | 2020-01-26 08:35 | PDOC ---
PROGRESS NOTES Chief Complaint Chief Complaint A/P: New left frontal/insular CVA - comfort care. Inpatient hospice. Unable to swallow or follow commands Dysphagia - not clearing her own secretions. 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 Still on 4L Syncope Chronic back pain - nerve stimulator (back), mult back surgeries, bilat foot surgery Low back pain, Osteoarthritis FEVERS FEN - NPO, comfort feeding if possible Dispo - inpatient hospice, actively dying History of Present Illness History of Present Illness Ms Espinoza is an 89yo F w/ PMHx HTN, GERD, diverticulosis, C Diff, chronic back pain, hypothyroidism, UTIs, spinal nerve stimulator, pacemaker who p/w a fall onto her left side, found with left hip fracture s/p ORIF with prosthesis on 01/14/2020. at about 8:30 there was first mentioned in the nurses notes of some neurological changes with right sided weakness. The patient had right-sided weakness and seizure activity early the morning of 01/15/2020 and a rapid response was called. She had a head CT abnormal with signs of left frontal/insular CVA. Neurology was consulted. Noted with fevers 101.8F on 01/18 at 0715 x1, noted with aspiration events. ID consulted Follows very few verbal or visual cues. Not picking up right hand or leg, not moving left leg. Will move left thumb. Not initiating swallowing. Discussed with both daughters and the overall poor prognosis, they will call back regarding further goals of care but do not currently want PEG placed as this was not in line with her wishes and family made her wishes clear to have comfort measures only, discontinue antibiotics and d/c aggressive measures. Admitted to inpatient hospice for left frontal CVA care. 4/2: Placed on scopolamine patch and sublingual atropine with improvement in comfort and secretions. Not following commands today. No fevers 4/3: O2 saturations 96% on 2L. Not following commands, afebrile. Some movement of left hand. Not attempting to initiate any swallowing with prompting. Turned every 2 hours. No cough noted 4/4: Not attempting to initiate any swallowing with prompting. Turned every 2 hours. No cough noted. bedside. Able to move toes on right foot, no right arm movement. Squeezes left hand after verbal prompting x3. Afebrile overnight. Right toe movement noted as well as some more left hand squeeze with bedside. Squeezes hand when asked if she is in pain. 2L NCO2. She is greedily sucking on oral swabs today, squeezes hand in response to this. Plan: Hydration to palliate. Vitals Vitals Vital Signs Date Time Temp Pulse Resp B/P (MAP) Pulse Ox O2 Delivery O2 Flow Rate FiO2 01/26/20 07:00 98.0 85 16 113/40 (64) 98 Nasal Cannula 2.0 98.0 Physical Exam General: No acute distress, Other (Not verbally responsive, does not track or follow commands) Lungs: Clear, Other Abdomen: Normal bowel sounds, Soft, No tenderness, No hepatosplenomegaly, No masses Comment Review of Relevant I have reviewed the following items tigre (where applicable) has been applied. Medications Current Medications Morphine Sulfate (Roxanol Conc) 5 mg PRN Q2HRS PRN SL SOA/MOD-SEVERE PAIN Last administered on 01/25/20at 21:02; Start 01/21/20 at 18:45 Morphine Sulfate (Morphine Sulfate) 1 mg PRN Q2HR PRN IV SOA/PAIN Last administered on 01/25/20at 13:12; Start 01/21/20 at 18:45 Lorazepam (Ativan) 1 mg PRN Q4HRS PRN PO ANXIETY / AGITATION; Start 01/21/20 at 18:45 Bisacodyl (Dulcolax Supp) 10 mg PRN DAILY PRN ID CONSTIPATION; Start 01/21/20 at 18:45 Promethazine HCl (Phenergan Supp) 25 mg PRN Q4HRS PRN ID NAUSEA/VOMITING; Start 01/21/20 at 18:45 Acetaminophen (Tylenol Supp) 650 mg PRN Q4HRS PRN ID MILD PAIN / TEMP; Start 01/21/20 at 18:45 Scopolamine (Transderm-Scop) 1 patch Q3DAYS TD Last administered on 01/25/20at 10:43; Start 01/22/20 at 14:00 Atropine Sulfate (Isopto Atropine) 1 drop PRN Q2HR PRN SL SECRETIONS; Start 01/22/20 at 13:45 Ketorolac Tromethamine (Toradol 15mg Vial) 15 mg PRN Q6HRS PRN IVP PAIN Last administered on 01/23/20at 22:13; Start 01/23/20 at 22:00; Stop 01/28/20 at 21:59 Lorazepam (Ativan Intensol) 2 mg PRN Q3HRS PRN SL ANXIETY / AGITATION Last administered on 01/25/20at 00:52; Start 01/24/20 at 15:30 Active Scripts Active Enema (Na Phos,M-B/Na Phos,Di-Ba) 133 Ml Enema 133 Ml ID PRN DAILY PRN 30 Days Atropine Sulfate 2 Ml Drops 1 Drop SL PRN Q2HR PRN 30 Days Furosemide 10 Mg/1 Ml Vial 40 Mg IVP PRN DAILY PRN 30 Days Lorazepam 2 Mg/1 Ml Vial 2 Mg IVP PRN Q4HRS PRN 30 Days Lorazepam Intensol (Lorazepam) 2 Mg/1 Ml Oral.conc 1 Mg SL PRN Q6HRS PRN 30 Days Acetaminophen Supp (Acetaminophen) 650 Mg Supp.rect 650 Mg ID PRN Q6HRS PRN 30 Days Morphine Sulfate 100 Mg/5 Ml Solution 4 Mg SL PRN Q3HRS PRN 30 Days Morphine Sulfate 4 Mg/1 Ml Cartridge 4 Mg IVP PRN Q2HR PRN 30 Days Vitals/I & O Vital Sign - Last 24 Hours 01/25/20 01/25/20 01/25/20 01/25/20 11:18 11:48 13:12 13:42 Resp 18 20 20 20 Pulse Ox 100 O2 Delivery Nasal Cannula Room Air Nasal Cannula Nasal Cannula O2 Flow Rate 2.0 2.0 2.0 01/25/20 01/25/20 01/25/20 01/25/20 13:52 19:00 20:00 21:02 Temp 98.0 97.9 98.0 97.9 Pulse 90 96 Resp 12 16 B/P (MAP) 137/49 (78) 136/53 (80) Pulse Ox 100 100 O2 Delivery Nasal Cannula Nasal Cannula Nasal Cannula O2 Flow Rate 2.0 2.0 2.0 01/25/20 01/26/20 22:02 07:00 Temp 98.0 98.0 Pulse 85 Resp 16 B/P (MAP) 113/40 (64) Pulse Ox 98 O2 Delivery Nasal Cannula Nasal Cannula O2 Flow Rate 2.0 Intake and Output 01/25/20 01/25/20 01/26/20 15:00 23:00 07:00 Intake Total 0 ml 0 ml Output Total 300 ml 500 ml Balance -300 ml -500 ml GHADA WARREN MD Jan 26, 2020 08:35
[2020-01-26 19:00] VITALS: BP 111/51
--- NOTE | 2020-01-26 19:44 | NUR ---
Reported to Dr Henning and to pt's spouse and daughter today, that pt was still able to move both feet on command and communicate appropriately with squeezing her left hand. I did ask her if she knew that she had a stroke and she raised her left hand and pointed to her head. This evening she did briefly shift her entire right leg. I did give her a swallow of water with her spouse present and he remarked "she did well"
[2020-01-26] MEDS: IV NORMAL SALINE 1000ML BAG 1,000 ML IV SCH (20:15)
[2020-01-27 07:00] VITALS: BP 113/53
[2020-01-27] MEDS: IV NORMAL SALINE 1000ML BAG 1,000 ML IV SCH (08:28)
[2020-01-27] MEDS: MORPHINE SULFATE 20 MG/ML CONC SOLUTION. SL PRN ×2 (11:52→15:41)
--- NOTE | 2020-01-27 12:50 | PDOC ---
[facility] PROGRESS NOTE Chief Complaint Chief Complaint New left frontal/insular CVA - comfort care. Inpatient hospice. Unable to swallow or follow commands Dysphagia - not clearing her own secretions. 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 Still on 4L Syncope Chronic back pain - nerve stimulator (back), mult back surgeries, bilat foot surgery Low back pain, Osteoarthritis FEVERS FEN - NPO, comfort feeding if possible Dispo - inpatient hospice, actively dying History of Present Illness History of Present Illness 01-27-2020 Patient seen and examined Discussed with her Discussed with optometry professor nurses here evaluating the patient currently Patient is Comfort Care Ms Espinoza is an 89yo F w/ PMHx HTN, GERD, diverticulosis, C Diff, chronic back pain, hypothyroidism, UTIs, spinal nerve stimulator, pacemaker who p/w a fall onto her left side, found with left hip fracture s/p ORIF with prosthesis on 01/14/2020. at about 8:30 there was first mentioned in the nurses notes of some neurological changes with right sided weakness. The patient had right-sided weakness and seizure activity early the morning of 01/15/2020 and a rapid resp onse was called. She had a head CT abnormal with signs of left frontal/insular CVA. Neurology was consulted. Noted with fevers 101.8F on 01/18 at 0715 x1, noted with aspiration events. ID consulted Follows very few verbal or visual cues. Not picking up right hand or leg, not moving left leg. Will move left thumb. Not initiating swallowing. Discussed with both daughters and the overall poor prognosis, they will call back regarding further goals of care but do not currently want PEG placed as this was not in line with her wishes and family made her wishes clear to have comfort measures only, discontinue antibiotics and d/c aggressive measures. Admitted to inpatient hospice for left frontal CVA care. 4/2: Placed on scopolamine patch and sublingual atropine with improvement in comfort and secretions. Not following commands today. No fevers 4/3: O2 saturations 96% on 2L. Not following commands, afebrile. Some movement of left hand. Not attempting to initiate any swallowing with prompting. Turned every 2 hours. No cough noted /4: Not attempting to initiate any swallowing with prompting. Turned every 2 hours. No cough noted. bedside. Able to move toes on right foot, no right arm movement. Squeezes left hand after verbal prompting x3. Afebrile overnight. Right toe movement noted as well as some more left hand squeeze with bedside. Squeezes hand when asked if she is in pain. 2L NCO2. She is greedily sucking on oral swabs today, squeezes hand in response to this. Plan: Hydration to palliate. Vitals/I&O Vitals/I&O: Vital Signs Date Time Temp Pulse Resp B/P (MAP) Pulse Ox O2 Delivery O2 Flow Rate FiO2 01/27/20 07:25 Nasal Cannula 2.0 01/27/20 07:00 98.3 60 18 113/53 (73) 97 98.3 I & O 01/26/20 01/26/20 01/27/20 15:00 23:00 07:00 Output Total 250 ml 350 ml Balance -250 ml -350 ml Physical Exam General: No acute distress, Other (Not verbally responsive, does not track or follow commands) Heart: Regular rate Lungs: Clear, Other Abdomen: Normal bowel sounds, Soft, No tenderness, No hepatosplenomegaly, No masses Extremities: No clubbing Skin: No rashes Assessment and Plan Assessmemt and Plan New left frontal/insular CVA - comfort care. Inpatient hospice. Unable to swallow or follow commands Dysphagia - not clearing her own secretions. 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 Still on 4L Syncope Chronic back pain - nerve stimulator (back), mult back surgeries, bilat foot surgery Low back pain, Osteoarthritis FEVERS FEN - NPO, comfort feeding if possible Dispo - inpatient hospice, actively dying Comment Review of Relevant I have reviewed the following items tigre (where applicable) has been applied. Medications: Current Medications Medications (Trade) Dose Ordered Sig/Kentrell Route PRN Reason Start Time Stop Time Status Last Admin Dose Admin Sodium Chloride 1,000 ml @ 50 mls/hr Q20H IV 01/26/20 20:15 01/27/20 11:30 DC 01/27/20 08:28 AJAY BOURGEOIS III DO Jan 27, 2020 12:50
[2020-01-27 19:00] VITALS: BP 127/52
[2020-01-28 07:00] VITALS: BP 133/66
[2020-01-28] MEDS: SCOPOLAMINE 1.5MG PATCH. TD SCH (09:31)
--- NOTE | 2020-01-28 12:56 | PDOC ---
[employer] PROGRESS NOTE Chief Complaint Chief Complaint New left frontal/insular CVA - comfort care. Inpatient hospice. Unable to swallow or follow commands Dysphagia - not clearing her own secretions. 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 Still on 4L Syncope Chronic back pain - nerve stimulator (back), mult back surgeries, bilat foot surgery Low back pain, Osteoarthritis FEVERS History of Present Illness History of Present Illness 01-28-2020 Patient seen and examined Her and RN are present Surprisingly she is starting to respond a little bit She moved her hand whenever I asked her to She made eye contact She blinked her eye Try to say 1 word Extremely frail and weak but slightly improved Her is happy about this Request that she stay in the hospital to try to get better a couple more days Chart reviewed Discussed with RN 01-27-2020 Patient seen and examined Discussed with her Discussed with milk house worker nurses here evaluating the patient currently Patient is Comfort Care Ms Espinoza is an 89yo F w/ PMHx HTN, GERD, diverticulosis, C Diff, chronic back pain, hypothyroidism, UTIs, spinal nerve stimulator, pacemaker who p/w a fall onto her left side, found with left hip fracture s/p ORIF with prosthesis on 01/14/2020. at about 8:30 there was first mentioned in the nurses notes of some neurological changes with right sided weakness. The patient had right-sided w eakness and seizure activity early the morning of 01/15/2020 and a rapid response was called. She had a head CT abnormal with signs of left frontal/insular CVA. Neurology was consulted. Noted with fevers 101.8F on 01/18 at 0715 x1, noted with aspiration events. ID consulted Follows very few verbal or visual cues. Not picking up right hand or leg, not moving left leg. Will move left thumb. Not initiating swallowing. Discussed with both daughters and the overall poor prognosis, they will call back inez mccann further goals of care but do not currently want PEG placed as this was not in line with her wishes and family made her wishes clear to have comfort measures only, discontinue antibiotics and d/c aggressive measures. Admitted to inpatient hospice for left frontal CVA care. 01/22: Placed on scopolamine patch and sublingual atropine with improvement in comfort and secretions. Not following commands today. No fevers 4/3: O2 saturations 96% on 2L. Not following commands, afebrile. Some movement of left hand. Not attempting to initiate any swallowing with prompting. Turned every 2 hours. No cough noted 4/4: Not attempting to initiate any swallowing with prompting. Turned every 2 hours. No cough noted. bedside. Able to move toes on right foot, no right arm movement. Squeezes left hand after verbal prompting x3. Afebrile overnight. Right toe movement noted as well as some more left hand squeeze with bedside. Squeezes hand when asked if she is in pain. 2L NCO2. She is greedily sucking on oral swabs today, squeezes hand in response to this. Plan: Hydration to palliate. Vitals/I&O Vitals/I&O: Vital Signs Date Time Temp Pulse Resp B/P (MAP) Pulse Ox O2 Delivery O2 Flow Rate FiO2 01/28/20 08:00 Nasal Cannula 2.0 01/28/20 07:00 98.0 89 18 133/66 (88) 92 98.0 I & O 01/27/20 01/27/20 01/28/20 15:00 23:00 07:00 Intake Total 0 ml 0 ml 0 ml Output Total 450 ml 550 ml Balance 0 ml -450 ml -550 ml Physical Exam General: No acute distress, Other (Not verbally responsive, does not track or follow commands) Heart: Regular rate Lungs: Clear, Other Abdomen: Normal bowel sounds, Soft, No tenderness, No hepatosplenomegaly, No masses Extremities: No clubbing Skin: No rashes Assessment and Plan Assessmemt and Plan New left frontal/insular CVA - comfort care. Inpatient hospice. Unable to swallow or follow commands Dysphagia - not clearing her own secretions. 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 Still on 4L Syncope Chronic back pain - nerve stimulator (back), mult back surgeries, bilat foot surgery Low back pain, Osteoarthritis FEVERS Plan Comfort care for now She is getting a little better Discussed with RN discussed with Prognosis guarded but slightly improved [facility] hospice is ready to take her, but her wants to hold off another couple days Comment Review of Relevant I have reviewed the following items tigre (where applicable) has been applied. AJAY BOURGEOIS III DO Jan 28, 2020 12:56
[2020-01-28 19:00] VITALS: BP 146/75
--- NOTE | 2020-01-28 19:45 | NUR ---
navi appeared more alert today. would open eyes to name and would follow commands with her left hand. right side remains flaccid. she was repositioned every 3 hrs. came to visit x 2 this shift. given small sips of water and tolerated. was not able to sip from straw.
[2020-01-28 23:00] VITALS: BP 142/77
[2020-01-29 07:00] VITALS: BP 125/55
--- NOTE | 2020-01-29 11:32 | PDOC ---
[employer] PROGRESS NOTE Chief Complaint Chief Complaint New left frontal/insular CVA - comfort care. Inpatient hospice. Unable to swallow or follow commands Dysphagia - not clearing her own secretions. 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 Still on 4L Syncope Chronic back pain - nerve stimulator (back), mult back surgeries, bilat foot surgery Low back pain, Osteoarthritis FEVERS History of Present Illness History of Present Illness 01-29-2020 Patient seen and examined Not much change Very somnolent and weak Chart reviewed Discussed with RN 01-28-2020 Patient seen and examined Her and RN are present Surprisingly she is starting to respond a little bit She moved her hand whenever I asked her to She made eye contact She blinked her eye Try to say 1 word Extremely frail and weak but slightly improved Her is happy about this Request that she stay in the hospital to try to get better a couple more days Chart reviewed Discussed with RN 01-27-2020 Patient seen and examined Discussed with her Discussed with senior training and development rep nurses here evaluating the patient currently Patient is Comfort Care Ms Espinoza is an 89yo F w/ PMHx HTN, GERD, diverticulosis, C Diff, chronic back pain, hypothyroidism, UTIs, spinal nerve stimulator, pacemaker who p/w a fall onto her left side, found with left hip fracture s/p ORIF with prosthesis on 01/14/2020. at about 8:30 there was first mentioned in the nurses notes of some neurological changes with right sided weakness. The patient had right-sided weakness and seizure activity early the morning of 01/15/2020 and a rapid response was called. She had a head CT abnormal with signs of left frontal /insular CVA. Neurology was consulted. Noted with fevers 101.8F on 01/18 at 0715 x1, noted with aspiration events. ID consulted Follows very few verbal or visual cues. Not picking up right hand or leg, not moving left leg. Will move left thumb. Not initiating swallowing. Discussed with both daughters and the overall poor prognosis, they will call back regarding further goals of care but do not currently want PEG placed as this was not in line with her wishes and family made her wishes clear to have comfort measures only, discontinue antibiotics and d/c aggressive measures. Admitted to inpatient hospice for left frontal CVA care. 4/2: Placed on scopolamine patch and sublingual atropine with improvement in comfort and secretions. Not following commands today. No fevers 4/3: O2 saturations 96% on 2L. Not following commands, afebrile. Some movement of left hand. Not attempting to initiate any swallowing with prompting. Turned every 2 hours. No cough noted 4/4: Not attempting to initiate any swallowing with prompting. Turned every 2 hours. No cough noted. bedside. Able to move toes on right foot, no right arm movement. Squeezes left hand after verbal prompting x3. Afebrile overnight. Right toe movement noted as well as some more left hand squeeze with bedside. Squeezes hand when asked if she is in pain. 2L NCO2. She is greedily sucking on oral swabs today, squeezes hand in response to this. Plan: Hydration to palliate. Vitals/I&O Vitals/I&O: Vital Signs Date Time Temp Pulse Resp B/P (MAP) Pulse Ox O2 Delivery O2 Flow Rate FiO2 01/29/20 08:15 Nasal Cannula 2.0 01/29/20 07:00 97.4 75 16 125/55 (78) 100 97.4 I & O 01/28/20 01/28/20 01/29/20 15:00 23:00 07:00 Intake Total 0 ml 30 ml 20 ml Output Total 250 ml 350 ml Balance 0 ml -220 ml -330 ml Physical Exam General: No acute distress, Other (Not verbally responsive, does not track or follow commands) Heart: Regular rate Lungs: Clear, Other Abdomen: Normal bowel sounds, Soft, No tenderness, No hepatosplenomegaly, No masses Extremities: No clubbing Skin: No rashes Assessment and Plan Assessmemt and Plan New left frontal/insular CVA - comfort care. Inpatient hospice. Unable to swallow or follow commands Dysphagia - not clearing her own secretions. 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 Still on 4L Syncope Chronic back pain - nerve stimulator (back), mult back surgeries, bilat foot surgery Low back pain, Osteoarthritis FEVERS Plan Comfort care for now She is getting a little better Discussed with RN discussed with Prognosis guarded but slightly improved [facility] hospice is ready to take her, but her wants to hold off another couple days Continue low-dose IV fluids per family request Comment Review of Relevant I have reviewed the following items tigre (where applicable) has been applied. AJAY BOURGEOIS III DO Jan 29, 2020 11:31
[2020-01-29 19:00] VITALS: BP 146/67
[2020-01-30 07:00] VITALS: BP 150/59
[2020-01-30] MEDS: MORPHINE SULFATE 20 MG/ML CONC SOLUTION. SL PRN ×2 (09:30→13:05)
--- NOTE | 2020-01-30 11:51 | PDOC ---
PROGRESS NOTES Chief Complaint Chief Complaint impression New left frontal/insular CVA - comfort care. Inpatient hospice. Unable to swallow or follow commands Dysphagia - not clearing her own secretions. 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 Still on 4L Syncope Chronic back pain - nerve stimulator (back), mult back surgeries, bilat foot surgery Low back pain, Osteoarthritis FEVERS History of Present Illness History of Present Illness 01-29-2020 Patient seen and examined Not much change Very somnolent and weak Chart reviewed Discussed with RN 01-28-2020 Patient seen and examined Her and RN are present Surprisingly she is starting to respond a little bit She moved her hand whenever I asked her to She made eye contact She blinked her eye Try to say 1 word Extremely frail and weak but slightly improved Her is happy about this Request that she stay in the hospital to try to get better a couple more days Chart reviewed Discussed with RN 01-27-2020 Patient seen and examined Discussed with her Discussed with acid strength inspector nurses here evaluating the patient currently Patient is Comfort Care Ms Espinoza is an 89yo F w/ PMHx HTN, GERD, diverticulosis, C Diff, chronic back pain, hypothyroidism, UTIs, spinal nerve stimulator, pacemaker who p/w a fall onto her left side, found with left hip fracture s/p ORIF with prosthesis on 01/14/2020. at about 8:30 there was first mentioned in the nurses notes of some neurological changes with right sided weakness. The patient had right-sided weakness and seizure activity early the morning of 01/15/2020 and a rapid response was called. She had a head CT abnormal with signs of left fronta l/insular CVA. Neurology was consulted. Noted with fevers 101.8F on 01/18 at 0715 x1, noted with aspiration events. ID consulted Follows very few verbal or visual cues. Not picking up right hand or leg, not moving left leg. Will move left thumb. Not initiating swallowing. Discussed with both daughters and the overall poor prognosis, they will call back regarding further goals of care but do not currently want PEG placed as this was not in line with her wishes and family made her wishes clear to have comfort measures only, discontinue antibiotics and d/c aggressive measures. Admitted to inpatient hospice for left frontal CVA care. 4/2: Placed on scopolamine patch and sublingual atropine with improvement in comfort and secretions. Not following commands today. No fevers 4/3: O2 saturations 96% on 2L. Not following commands, afebrile. Some movement of left hand. Not attempting to initiate any swallowing with prompting. Turned every 2 hours. No cough noted 4/4: Not attempting to initiate any swallowing with prompting. Turned every 2 hours. No cough noted. bedside. Able to move toes on right foot, no right arm movement. Squeezes left hand after verbal prompting x3. Afebrile overnight. Right toe movement noted as well as some more left hand squeeze with bedside. Squeezes hand when asked if she is in pain. 2L NCO2. She is greedily sucking on oral swabs today, squeezes hand in response to this. Plan: Hydration to palliate. Vitals Vitals Vital Signs Date Time Temp Pulse Resp B/P (MAP) Pulse Ox O2 Delivery O2 Flow Rate FiO2 01/30/20 07:50 Room Air 2.0 01/30/20 07:00 98.4 85 18 150/59 (89) 96 98.4 Physical Exam General: No acute distress, Other (Not verbally responsive, does not track or follow commands) Heart: Regular rate Lungs: Clear, Other Abdomen: Normal bowel sounds, Soft, No tenderness, No hepatosplenomegaly, No masses Extremities: No clubbing Skin: No rashes Comment Review of Relevant I have reviewed the following items tigre (where applicable) has been applied. Medications Current Medications Morphine Sulfate (Roxanol Conc) 5 mg PRN Q2HRS PRN SL SOA/MOD-SEVERE PAIN Last administered on 01/30/20at 09:30; Start 01/21/20 at 18:45 Morphine Sulfate (Morphine Sulfate) 1 mg PRN Q2HR PRN IV SOA/PAIN Last administered on 01/25/20at 13:12; Start 01/21/20 at 18:45 Lorazepam (Ativan) 1 mg PRN Q4HRS PRN PO ANXIETY / AGITATION; Start 01/21/20 at 18:45 Bisacodyl (Dulcolax Supp) 10 mg PRN DAILY PRN MS CONSTIPATION; Start 01/21/20 at 18:45 Promethazine HCl (Phenergan Supp) 25 mg PRN Q4HRS PRN MS NAUSEA/VOMITING; Start 01/21/20 at 18:45 Acetaminophen (Tylenol Supp) 650 mg PRN Q4HRS PRN MS MILD PAIN / TEMP; Start 01/21/20 at 18:45 Scopolamine (Transderm-Scop) 1 patch Q3DAYS TD Last administered on 01/28/20at 09:31; Start 01/22/20 at 14:00 Atropine Sulfate (Isopto Atropine) 1 drop PRN Q2HR PRN SL SECRETIONS; Start 01/22/20 at 13:45 Ketorolac Tromethamine (Toradol 15mg Vial) 15 mg PRN Q6HRS PRN IVP PAIN Last administered on 01/23/20at 22:13; Start 01/23/20 at 22:00; Stop 01/28/20 at 21:59; Status DC Lorazepam (Ativan Intensol) 2 mg PRN Q3HRS PRN SL ANXIETY / AGITATION Last administered on 01/25/20at 00:52; Start 01/24/20 at 15:30 Sodium Chloride 1,000 ml @ 50 mls/hr Q20H IV Last administered on 01/27/20at 08:28; Start 01/26/20 at 20:15; Stop 01/27/20 at 11:30; Status DC Active Scripts Active Enema (Na Phos,M-B/Na Phos,Di-Ba) 133 Ml Enema 133 Ml MS PRN DAILY PRN 30 Days Atropine Sulfate 2 Ml Drops 1 Drop SL PRN Q2HR PRN 30 Days Furosemide 10 Mg/1 Ml Vial 40 Mg IVP PRN DAILY PRN 30 Days Lorazepam 2 Mg/1 Ml Vial 2 Mg IVP PRN Q4HRS PRN 30 Days Lorazepam Intensol (Lorazepam) 2 Mg/1 Ml Oral.conc 1 Mg SL PRN Q6HRS PRN 30 Days Acetaminophen Supp (Acetaminophen) 650 Mg Supp.rect 650 Mg MS PRN Q6HRS PRN 30 Days Morphine Sulfate 100 Mg/5 Ml Solution 4 Mg SL PRN Q3HRS PRN 30 Days Morphine Sulfate 4 Mg/1 Ml Cartridge 4 Mg IVP PRN Q2HR PRN 30 Days Vitals/I & O Vital Sign - Last 24 Hours 4/8/20 4/8/20 4/9/20 4/9/20 19:00 20:00 07:00 07:50 Temp 99.2 98.4 99.2 98.4 Pulse 91 85 Resp 16 18 B/P (MAP) 146/67 (93) 150/59 (89) Pulse Ox 94 96 O2 Delivery Room Air Room Air Room Air Room Air O2 Flow Rate 2.0 Intake and Output 01/29/20 01/29/20 01/30/20 15:00 23:00 07:00 Intake Total 0 ml 0 ml Output Total 300 ml Balance -300 ml 0 ml ELVA ESCALANTE MD Jan 30, 2020 11:51
--- NOTE | 2020-01-30 15:21 | NUR ---
Alert, oral care given, take ice chips, turned & repositioned for comfort, spouse request pain medication be given at hs also, medicated throughout the day, Ember dressing removed from left hip incision, tracy intact, will continue to observe & give support as needed
--- NOTE | 2020-01-30 16:15 | NUR ---
assumed care. at bedside. wants to be sure she gets pain medication at bedtime. oral care given
[2020-01-30 19:00] VITALS: BP 140/73
[2020-01-31] MEDS: MORPHINE SULFATE 20 MG/ML CONC SOLUTION. SL PRN ×3 (02:06→21:14)
[2020-01-31 07:00] VITALS: BP 133/51
[2020-01-31] MEDS: SCOPOLAMINE 1.5MG PATCH. TD SCH (09:06)
--- NOTE | 2020-01-31 10:22 | PDOC ---
PROGRESS NOTES Chief Complaint Chief Complaint impression New left frontal/insular CVA - comfort care. Inpatient hospice. Unable to swallow or follow commands Dysphagia - not clearing her own secretions. 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 Still on 4L Syncope Chronic back pain - nerve stimulator (back), mult back surgeries, bilat foot surgery Low back pain, Osteoarthritis FEVERS History of Present Illness History of Present Illness 01-31-2020 Patient seen and examined Not much change Very somnolent and weak Chart reviewed Discussed with RN [phone] Patient seen and examined Her and RN are present Surprisingly she is starting to respond a little bit She moved her hand whenever I asked her to She made eye contact She blinked her eye Try to say 1 word Extremely frail and weak but slightly improved Her is happy about this Request that she stay in the hospital to try to get better a couple more days Chart reviewed Discussed with RN 01-27-2020 Patient seen and examined Discussed with her Discussed with production engineer nurses here evaluating the patient currently Patient is Comfort Care Ms Espinoza is an 89yo F w/ PMHx HTN, GERD, diverticulosis, C Diff, chronic back pain, hypothyroidism, UTIs, spinal nerve stimulator, pacemaker who p/w a fall onto her left side, found with left hip fracture s/p ORIF with prosthesis on 01/14/2020. at about 8:30 there was first mentioned in the nurses notes of some neurological changes with right sided weakness. The patient had right-sided weakness and seizure activity early the morning of 01/15/2020 and a rapid response was called. She had a head CT abnormal with signs of left front al/insular CVA. Neurology was consulted. Noted with fevers 101.8F on 01/18 at 0715 x1, noted with aspiration events. ID consulted Follows very few verbal or visual cues. Not picking up right hand or leg, not moving left leg. Will move left thumb. Not initiating swallowing. Discussed with both daughters and the overall poor prognosis, they will call back regarding further goals of care but do not currently want PEG placed as this was not in line with her wishes and family made her wishes clear to have comfort measures only, discontinue antibiotics and d/c aggressive measures. Admitted to inpatient hospice for left frontal CVA care. 4/2: Placed on scopolamine patch and sublingual atropine with improvement in comfort and secretions. Not following commands today. No fevers 4/3: O2 saturations 96% on 2L. Not following commands, afebrile. Some movement of left hand. Not attempting to initiate any swallowing with prompting. Turned every 2 hours. No cough noted 4/4: Not attempting to initiate any swallowing with prompting. Turned every 2 hours. No cough noted. bedside. Able to move toes on right foot, no right arm movement. Squeezes left hand after verbal prompting x3. Afebrile overnight. Right toe movement noted as well as some more left hand squeeze with bedside. Squeezes hand when asked if she is in pain. 2L NCO2. She is greedily sucking on oral swabs today, squeezes hand in response to this. Plan: Hydration to palliate. Vitals Vitals Vital Signs Date Time Temp Pulse Resp B/P (MAP) Pulse Ox O2 Delivery O2 Flow Rate FiO2 01/31/20 07:50 Room Air 01/31/20 07:00 98.0 79 16 133/51 (78) 95 98.0 01/30/20 07:50 2.0 Physical Exam General: No acute distress, Other (Not verbally responsive, does not track or follow commands) Heart: Regular rate Lungs: Clear, Other Abdomen: Normal bowel sounds, Soft, No tenderness, No hepatosplenomegaly, No masses Extremities: No clubbing Skin: No rashes Comment Review of Relevant I have reviewed the following items tigre (where applicable) has been applied. Medications Current Medications Morphine Sulfate (Roxanol Conc) 5 mg PRN Q2HRS PRN SL SOA/MOD-SEVERE PAIN Last administered on 01/31/20at 09:06; Start 01/21/20 at 18:45 Morphine Sulfate (Morphine Sulfate) 1 mg PRN Q2HR PRN IV SOA/PAIN Last administered on 01/25/20at 13:12; Start 01/21/20 at 18:45 Lorazepam (Ativan) 1 mg PRN Q4HRS PRN PO ANXIETY / AGITATION; Start 01/21/20 at 18:45 Bisacodyl (Dulcolax Supp) 10 mg PRN DAILY PRN IN CONSTIPATION; Start 01/21/20 at 18:45 Promethazine HCl (Phenergan Supp) 25 mg PRN Q4HRS PRN IN NAUSEA/VOMITING; Start 01/21/20 at 18:45 Acetaminophen (Tylenol Supp) 650 mg PRN Q4HRS PRN IN MILD PAIN / TEMP; Start 01/21/20 at 18:45 Scopolamine (Transderm-Scop) 1 patch Q3DAYS TD Last administered on 01/31/20at 09:06; Start 01/22/20 at 14:00 Atropine Sulfate (Isopto Atropine) 1 drop PRN Q2HR PRN SL SECRETIONS; Start 01/22/20 at 13:45 Ketorolac Tromethamine (Toradol 15mg Vial) 15 mg PRN Q6HRS PRN IVP PAIN Last administered on 01/23/20at 22:13; Start 01/23/20 at 22:00; Stop 01/28/20 at 21:59; Status DC Lorazepam (Ativan Intensol) 2 mg PRN Q3HRS PRN SL ANXIETY / AGITATION Last administered on 01/25/20at 00:52; Start 01/24/20 at 15:30 Sodium Chloride 1,000 ml @ 50 mls/hr Q20H IV Last administered on 01/27/20at 08:28; Start 01/26/20 at 20:15; Stop 01/27/20 at 11:30; Status DC Active Scripts Active Enema (Na Phos,M-B/Na Phos,Di-Ba) 133 Ml Enema 133 Ml IN PRN DAILY PRN 30 Days Atropine Sulfate 2 Ml Drops 1 Drop SL PRN Q2HR PRN 30 Days Furosemide 10 Mg/1 Ml Vial 40 Mg IVP PRN DAILY PRN 30 Days Lorazepam 2 Mg/1 Ml Vial 2 Mg IVP PRN Q4HRS PRN 30 Days Lorazepam Intensol (Lorazepam) 2 Mg/1 Ml Oral.conc 1 Mg SL PRN Q6HRS PRN 30 Days Acetaminophen Supp (Acetaminophen) 650 Mg Supp.rect 650 Mg IN PRN Q6HRS PRN 30 Days Morphine Sulfate 100 Mg/5 Ml Solution 4 Mg SL PRN Q3HRS PRN 30 Days Morphine Sulfate 4 Mg/1 Ml Cartridge 4 Mg IVP PRN Q2HR PRN 30 Days Vitals/I & O Vital Sign - Last 24 Hours 4/9/01/30/20 01/31/20 01/31/20 19:00 20:00 07:00 07:50 Temp 97.5 98.0 97.5 98.0 Pulse 82 79 Resp 16 16 B/P (MAP) 140/73 (95) 133/51 (78) Pulse Ox 90 95 O2 Delivery Room Air Room Air Room Air Intake and Output 01/30/20 01/30/20 01/31/20 15:00 23:00 07:00 Intake Total 0 ml Output Total 750 ml Balance -750 ml 0 ml ELVA ESCALANTE MD Jan 31, 2020 10:22
[2020-01-31 19:00] VITALS: BP 168/73
[2020-02-01 07:05] VITALS: BP 164/70
--- NOTE | 2020-02-01 10:57 | NUR ---
The patient is on comfort care, O2 sat 77%, paged Dr. York regarding oxygen per nc, O2 held. The patient's daughter was updated via phone. Currently, patient's at bedside. This RN notified him of the changes.
--- NOTE | 2020-02-01 12:31 | PDOC ---
[facility] PROGRESS NOTE Chief Complaint Chief Complaint Left frontal/insular CVA Dysphagia Fall with hip fracture Hypertension HYPOXIC RESP FAILURE Syncope Chronic back pain Low back pain Osteoarthritis FEVERS History of Present Illness History of Present Illness [id number] Patient seen and examined Her is at her bedside he is depressed Patient started him but doesn't talk Extremely weak Appears to be dying but slowly Chart reviewed Discussed with RN 01-31-2020 Patient seen and examined Not much change Very somnolent and weak Chart reviewed Discussed with RN [id number] Patient seen and examined Her and RN are present Surprisingly she is starting to respond a little bit She moved her hand whenever I asked her to She made eye contact She blinked her eye Try to say 1 word Extremely frail and weak but slightly improved Her is happy about this Request that she stay in the hospital to try to get better a couple more days Chart reviewed Discussed with RN 01-27-2020 Patient seen and examined Discussed with her Discussed with reactor service operator nurses here evaluating the patient currently Patient is Comfort Care Ms Espinoza is an 89yo F w/ PMHx HTN, GERD, diverticulosis, C Diff, chronic back pain, hypothyroidism, UTIs, spinal nerve stimulator, pacemaker who p/w a fall onto her left side, found with left hip fracture s/p ORIF with prosthesis on 01/14/2020. at about 8:30 there was first mentioned in the nurses notes of some neurological changes with right sided weakness. The patient had right-sided weakness and seizure activity early the morning of 01/15/2020 and a rapid response was called. She had a head CT abnormal with signs of left frontal/insular CVA. Neurology was consulted. Noted with fevers 101.8F on 01/18 at 0715 x1, noted with aspiration events. ID consulted Follows very few verbal or visual cues. Not picking up right hand or leg, not moving left leg. Will move left thumb. Not initiating swallowing. Discussed with both daughters and the overall poor prognosis, they will call back regarding further goals of care but do not currently want PEG placed as this was not in line with her wishes and family made her wishes clear to have comfort measures only, discontinue antibiotics and d/c aggressive measures. Admitted to inpatient hospice for left frontal CVA care. 4/2: Placed on scopolamine patch and sublingual atropine with improvement in comfort and secretions. Not following commands today. No fevers 4/3: O2 saturations 96% on 2L. Not following commands, afebrile. Some movement of left hand. Not attempting to initiate any swallowing with prompting. Turned every 2 hours. No cough noted 4/4: Not attempting to initiate any swallowing with prompting. Turned every 2 hours. No cough noted. bedside. Able to move toes on right foot, no right arm movement. Squeezes left hand after verbal prompting x3. Afebrile overnight. Right toe movement noted as well as some more left hand squeeze with bedside. Squeezes hand when asked if she is in pain. 2L NCO2. She is greedily sucking on oral swabs today, squeezes hand in response to this. Plan: Hydration to palliate. Vitals/I&O Vitals/I&O: Vital Signs Date Time Temp Pulse Resp B/P (MAP) Pulse Ox O2 Delivery O2 Flow Rate FiO2 02/01/20 08:00 Room Air 02/01/20 07:05 98.2 100 18 164/70 (101) 77 98.2 I & O 01/31/20 01/31/20 02/01/20 15:00 23:00 07:00 Intake Total 0 ml Output Total 250 ml 200 ml Balance -250 ml -200 ml Physical Exam General: No acute distress, Other (Not verbally responsive, does not track or follow commands) Heart: Regular rate Lungs: Clear, Other Abdomen: Normal bowel sounds, Soft, No tenderness, No hepatosplenomegaly, No masses Extremities: No clubbing Skin: No rashes Assessment and Plan Assessmemt and Plan New left frontal/insular CVA - comfort care. Inpatient hospice. Unable to swall ow or follow commands Dysphagia - not clearing her own secretions. 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 Still on 4L Syncope Chronic back pain - nerve stimulator (back), mult back surgeries, bilat foot surgery Low back pain, Osteoarthritis FEVERS Continue comfort care Prognosis terminal I spoke with her and he understands but states he is heart broken Comment Review of Relevant I have reviewed the following items tigre (where applicable) has been applied. AJAY BOURGEOIS III DO Feb 01, 2020 12:30
[2020-02-01] MEDS: MORPHINE SULFATE 20 MG/ML CONC SOLUTION. SL PRN ×4 (13:47→22:56)
[2020-02-01] MEDS: IV NORMAL SALINE 1000ML BAG 1,000 ML IV SCH (17:38)
[2020-02-01 19:00] VITALS: BP 141/54
--- NOTE | 2020-02-02 03:15 | NUR ---
Patient felt warm, temp was 100.0 axillary. Cool wash cloth was applied to patients forehead. Patient has been turned every couple hours.
[2020-02-02] MEDS: MORPHINE SULFATE 20 MG/ML CONC SOLUTION. SL PRN (05:22)
[2020-02-02 07:35] VITALS: BP 147/50
--- NOTE | 2020-02-02 14:08 | PDOC ---
[facility] PROGRESS NOTE Chief Complaint Chief Complaint Left frontal/insular CVA Dysphagia Fall with hip fracture Hypertension HYPOXIC RESP FAILURE Syncope Chronic back pain Low back pain Osteoarthritis FEVERS History of Present Illness History of Present Illness [id number] Patient seen and examined Unresponsive Near agonal breathing Her is present States he is heart broken Discussed with RN Chart reviewed [id number] Patient seen and examined Her is at her bedside he is depressed Patient started him but doesn't talk Extremely weak Appears to be dying but slowly Chart reviewed Discussed with RN 01-31-2020 Patient seen and examined Not much change Very somnolent and weak Chart reviewed Discussed with RN Patient seen and examined Her and RN are present Surprisingly she is starting to respond a little bit She moved her hand whenever I asked her to She made eye contact She blinked her eye Try to say 1 word Extremely frail and weak but slightly improved Her is happy about this Request that she stay in the hospital to try to get better a couple more days Chart reviewed Discussed with RN 01-27-2020 Patient seen and examined Discussed with her Discussed with audio installer nurses here evaluating the patient currently Patient is Comfort Care Ms Espinoza is an 89yo F w/ PMHx HTN, GERD, diverticulosis, C Diff, chronic back pain, hypothyroidism, UTIs, spinal nerve stimulator, pacemaker who p/w a fall onto her left side, found with left hip fracture s/p ORIF with prosthesis on 01/14/2020. at about 8:30 there was first mentioned in the nurses notes of some neurological changes with right sided weakness. The patient had right-sided weakness and seizure activity early the morning of 01/15/2020 and a rapid response was called. She had a head CT abnormal with signs of left fronta l/insular CVA. Neurology was consulted. Noted with fevers 101.8F on 01/18 at 0715 x1, noted with aspiration events. ID consulted Follows very few verbal or visual cues. Not picking up right hand or leg, not moving left leg. Will move left thumb. Not initiating swallowing. Discussed with both daughters and the overall poor prognosis, they will call back regarding further goals of care but do not currently want PEG placed as this was not in line with her wishes and family made her wishes clear to have comfort measures only, discontinue antibiotics and d/c aggressive measures. Admitted to inpatient hospice for left frontal CVA care. 4/2: Placed on scopolamine patch and sublingual atropine with improvement in comfort and secretions. Not following commands today. No fevers 4/3: O2 saturations 96% on 2L. Not following commands, afebrile. Some movement of left hand. Not attempting to initiate any swallowing with prompting. Turned every 2 hours. No cough noted 4/4: Not attempting to initiate any swallowing with prompting. Turned every 2 hours. No cough noted. bedside. Able to move toes on right foot, no right arm movement. Squeezes left hand after verbal prompting x3. Afebrile overnight. Right toe movement noted as well as some more left hand squeeze with bedside. Squeezes hand when asked if she is in pain. 2L NCO2. She is greedily sucking on oral swabs today, squeezes hand in response to this. Plan: Hydration to palliate. Vitals/I&O Vitals/I&O: Vital Signs Date Time Temp Pulse Resp B/P (MAP) Pulse Ox O2 Delivery O2 Flow Rate FiO2 02/02/20 08:00 Room Air 02/02/20 07:35 99.3 104 20 147/50 (82) 70 99.3 I & O 02/01/20 02/01/20 02/02/20 15:00 23:00 07:00 Intake Total 0 ml Output Total 250 ml 200 ml Balance -250 ml -200 ml Physical Exam General: No acute distress, Other (Not verbally responsive, does not track or follow commands) Heart: Regular rate Lungs: Clear, Other Abdomen: Normal bowel sounds, Soft, No tenderness, No hepatosplenomegaly, No masses Extremities: No clubbing Skin: No rashes Review of Systems Review of Systems: Unable to obtain Assessment and Plan Assessmemt and Plan Left frontal/insular CVA Dysphagia Fall with hip fracture Hypertension HYPOXIC RESP FAILURE Syncope Chronic back pain Low back pain Osteoarthritis Fevers Plan Comfort Care Comment Review of Relevant I have reviewed the following items tigre (where applicable) has been applied. Medications: Current Medications Medications (Trade) Dose Ordered Sig/Kentrell Route PRN Reason Start Time Stop Time Status Last Admin Dose Admin Sodium Chloride 1,000 ml @ 25 mls/hr Q24H IV 02/01/20 17:15 02/01/20 17:38 AJAY BOURGEOIS III DO Feb 02, 2020 14:08
[2020-02-02] MEDS: IV NORMAL SALINE 1000ML BAG 1,000 ML IV SCH (17:15)
[2020-02-02 19:49] VITALS: BP 142/52
--- NOTE | 2020-02-02 20:27 | NUR ---
Non--administered pts IVF due to pt being on comfort care and IV site is swollen with 3+ pitting. Due to pt being on comfort care, did not want to stick pt again.
[2020-02-03] MEDS: MORPHINE SULFATE 20 MG/ML CONC SOLUTION. SL PRN ×4 (03:42→18:44)
[2020-02-03 07:00] VITALS: BP 127/72
[2020-02-03] MEDS: SCOPOLAMINE 1.5MG PATCH. TD SCH (09:49)
--- NOTE | 2020-02-03 12:27 | PDOC ---
PROGRESS NOTES Chief Complaint Chief Complaint Left frontal/insular CVA Dysphagia Fall with hip fracture Hypertension HYPOXIC RESP FAILURE Syncope Chronic back pain Low back pain Osteoarthritis FEVERS Plan: comfort measures patient is a DNR looks like she is actively dying, in no apparent distress, discussed with nursing staff History of Present Illness History of Present Illness 02/03/2020 No acute events reported overnight, case discussed with nursing staff patient in no acute distress agonal breathing, [id number] Patient seen and examined Unresponsive Near agonal breathing Her is present States he is heart broken Discussed with RN Chart reviewed [id number] Patient seen and examined Her is at her bedside he is depressed Patient started him but doesn't talk Extremely weak Appears to be dying but slowly Chart reviewed Discussed with RN 01-31-2020 Patient seen and examined Not much change Very somnolent and weak Chart reviewed Discussed with RN Patient seen and examined Her and RN are present Surprisingly she is starting to respond a little bit She moved her hand whenever I asked her to She made eye contact She blinked her eye Try to say 1 word Extremely frail and weak but slightly improved Her is happy about this Request that she stay in the hospital to try to get better a couple more days Chart reviewed Discussed with RN 01-27-2020 Patient seen and examined Discussed with her Discussed with ortho rn nurses here evaluating the patient currently Patient is Comfort Care Ms Espinoza is an 89yo F w/ PMHx HTN, GERD, diverticulosis, C Diff, chronic back pain, hypothyroidism, UTIs, spinal nerve stimulator, pacemaker who p/w a fall onto her left side, found with left hip fracture s/p ORIF with prosthesis on 01/14/2020. at about 8:30 there was first mentioned in the nurses notes of some neurological changes with right sided weakness. The patient had right-sided weakness and seizure activity early the morning of 01/15/2020 and a rapid response was called. She had a head CT abnormal with signs of left frontal/insular CVA. Neurology was consulted. Noted with fevers 101.8F on 01/18 at 0715 x1, noted with aspiration events. ID consulted Follows very few verbal or visual cues. Not picking up right hand or leg, not moving left leg. Will move left thumb. Not initiating swallowing. Discussed with both daughters and the overall poor prognosis, they will call back regarding further goals of care but do not currently want PEG placed as this was not in line with her wishes and family made her wishes clear to have comfort m easures only, discontinue antibiotics and d/c aggressive measures. Admitted to inpatient hospice for left frontal CVA care. 4/: Placed on scopolamine patch and sublingual atropine with improvement in comfort and secretions. Not following commands today. No fevers /3: O2 saturations 96% on 2L. Not following commands, afebrile. Some movement of left hand. Not attempting to initiate any swallowing with prompting. Turned every 2 hours. No cough noted 01/24: Not attempting to initiate any swallowing with prompting. Turned every 2 hours. No cough noted. bedside. Able to move toes on right foot, no right arm movement. Squeezes left hand after verbal prompting x3. Afebrile overnight. Right toe movement noted as well as some more left hand squeeze with bedside. Squeezes hand when asked if she is in pain. 2L NCO2. She is greedily sucking on oral swabs today, squeezes hand in response to this. Plan: Hydration to palliate. Vitals Vitals Vital Signs Date Time Temp Pulse Resp B/P (MAP) Pulse Ox O2 Delivery O2 Flow Rate FiO2 02/03/20 12:04 Room Air 02/03/20 07:00 98.2 163 26 127/72 (90) 87 98.2 Physical Exam General: No acute distress, Other (Not verbally responsive, does not track or follow commands) Heart: Regular rate Lungs: Clear, Other Abdomen: Normal bowel sounds, Soft, No tenderness, No hepatosplenomegaly, No masses Extremities: No clubbing Skin: No rashes Comment Review of Relevant I have reviewed the following items tigre (where applicable) has been applied. Medications Current Medications Morphine Sulfate (Roxanol Conc) 5 mg PRN Q2HRS PRN SL SOA/MOD-SEVERE PAIN Last administered on 02/03/20at 12:04; Start 01/21/20 at 18:45 Morphine Sulfate (Morphine Sulfate) 1 mg PRN Q2HR PRN IV SOA/PAIN Last administered on 01/25/20at 13:12; Start 01/21/20 at 18:45 Lorazepam (Ativan) 1 mg PRN Q4HRS PRN PO ANXIETY / AGITATION; Start 01/21/20 at 18:45 Bisacodyl (Dulcolax Supp) 10 mg PRN DAILY PRN ND CONSTIPATION; Start 01/21/20 at 18:45 Promethazine HCl (Phenergan Supp) 25 mg PRN Q4HRS PRN ND NAUSEA/VOMITING; Start 01/21/20 at 18:45 Acetaminophen (Tylenol Supp) 650 mg PRN Q4HRS PRN ND MILD PAIN / TEMP; Start 01/21/20 at 18:45 Scopolamine (Transderm-Scop) 1 patch Q3DAYS TD Last administered on 02/03/20at 09:49; Start 01/22/20 at 14:00 Atropine Sulfate (Isopto Atropine) 1 drop PRN Q2HR PRN SL SECRETIONS; Start 01/22/20 at 13:45 Ketorolac Tromethamine (Toradol 15mg Vial) 15 mg PRN Q6HRS PRN IVP PAIN Last administered on 01/23/20at 22:13; Start 01/23/20 at 22:00; Stop 01/28/20 at 21:59; Status DC Lorazepam (Ativan Intensol) 2 mg PRN Q3HRS PRN SL ANXIETY / AGITATION Last administered on 01/25/20at 00:52; Start 01/24/20 at 15:30 Sodium Chloride 1,000 ml @ 50 mls/hr Q20H IV Last administered on 01/27/20at 08:28; Start 01/26/20 at 20:15; Stop 01/27/20 at 11:30; Status DC Sodium Chloride 1,000 ml @ 25 mls/hr Q24H IV Last administered on 02/01/20at 17 :38; Start 02/01/20 at 17:15 Active Scripts Active Enema (Na Phos,M-B/Na Phos,Di-Ba) 133 Ml Enema 133 Ml ND PRN DAILY PRN 30 Days Atropine Sulfate 2 Ml Drops 1 Drop SL PRN Q2HR PRN 30 Days Furosemide 10 Mg/1 Ml Vial 40 Mg IVP PRN DAILY PRN 30 Days Lorazepam 2 Mg/1 Ml Vial 2 Mg IVP PRN Q4HRS PRN 30 Days Lorazepam Intensol (Lorazepam) 2 Mg/1 Ml Oral.conc 1 Mg SL PRN Q6HRS PRN 30 Days Acetaminophen Supp (Acetaminophen) 650 Mg Supp.rect 650 Mg ND PRN Q6HRS PRN 30 Days Morphine Sulfate 100 Mg/5 Ml Solution 4 Mg SL PRN Q3HRS PRN 30 Days Morphine Sulfate 4 Mg/1 Ml Cartridge 4 Mg IVP PRN Q2HR PRN 30 Days Vitals/I & O Vital Sign - Last 24 Hours 02/02/20 02/02/20 02/03/20 02/03/20 19:30 19:49 03:42 04:44 Temp 100.7 100.7 Pulse 94 Resp 20 B/P (MAP) 142/52 (82) Pulse Ox 88 O2 Delivery Room Air Room Air Room Air Room Air 02/03/20 02/03/20 02/03/20 02/03/20 07:00 09:49 10:49 12:04 Temp 98.2 98.2 Pulse 163 Resp 26 B/P (MAP) 127/72 (90) Pulse Ox 87 O2 Delivery Room Air Room Air Room Air Room Air Intake and Output 02/02/20 02/02/20 02/03/20 15:00 23:00 07:00 Intake Total 0 ml 0 ml Output Total 150 ml 250 ml Balance -150 ml -250 ml PAPITO TAMEZ MD Feb 03, 2020 12:27
[2020-02-03] MEDS: IV NORMAL SALINE 1000ML BAG 1,000 ML IV SCH (17:15)
[2020-02-03 19:00] VITALS: BP 125/72
[2020-02-03] MEDS: LORazepam INTENSOL 2 MG/ML ORAL.CONC SL PRN (20:16)
[2020-02-04 07:15] VITALS: BP 111/59
[2020-02-04] MEDS: MORPHINE SULFATE 20 MG/ML CONC SOLUTION. SL PRN ×2 (11:10→17:57)
--- NOTE | 2020-02-04 11:11 | PDOC ---
PROGRESS NOTES Chief Complaint Chief Complaint Left frontal/insular CVA Dysphagia Fall with hip fracture Hypertension HYPOXIC RESP FAILURE Syncope Chronic back pain Low back pain Osteoarthritis FEVERS Plan: comfort measures patient is a DNR looks like she is actively dying, in no apparent distress, discussed with nursing staff History of Present Illness History of Present Illness 02/04/2020 No acute events reported overnight, case discussed with nursing staff patient in no acute distress actively dying, will continue to monitor 02/03/2020 No acute events reported overnight, case discussed with nursing staff patient in no acute distress agonal breathing, [id number] Patient seen and examined Unresponsive Near agonal breathing Her is present States he is heart broken Discussed with RN Chart reviewed [id number] Patient seen and examined Her is at her bedside he is depressed Patient started him but doesn't talk Extremely weak Appears to be dying but slowly Chart reviewed Discussed with RN 01-31-2020 Patient seen and examined Not much change Very somnolent and weak Chart reviewed Discussed with RN [id number] Patient seen and examined Her and RN are present Surprisingly she is starting to respond a little bit She moved her hand whenever I asked her to She made eye contact She blinked her eye Try to say 1 word Extremely frail and weak but slightly improved Her is happy about this Request that she stay in the hospital to try to get better a couple more days Chart reviewed Discussed with RN 01-27-2020 Patient seen and examined Discussed with her Discussed with strapping machine operator nurses here evaluating the patient currently Patient is Comfort Care Ms Espinoza is an 89yo F w/ PMHx HTN, GERD, diverticulosis, C Diff, chronic back pain, hypothyroidism, UTIs, spinal nerve stimulator, pacemaker who p/w a fall onto her left side, found with left hip fracture s/p ORIF with prosthesis on 01/14/2020. at about 8:30 there was first mentioned in the nurses notes of some neurological changes with right sided weakness. The patient had right-sided wea kness and seizure activity early the morning of 01/15/2020 and a rapid response was called. She had a head CT abnormal with signs of left frontal/insular CVA. Neurology was consulted. Noted with fevers 101.8F on 01/18 at 0715 x1, noted with aspiration events. ID consulted Follows very few verbal or visual cues. Not picking up right hand or leg, not moving left leg. Will move left thumb. Not initiating swallowing. Discussed with both daughters and the overall poor prognosis, they will call back regarding further goals of care but do not currently want PEG placed as this was not in line with her wishes and family made her wishes clear to have comfort measures only, discontinue antibiotics and d/c aggressive measures. Admitted to inpatient hospice for left frontal CVA care. 4/2: Placed on scopolamine patch and sublingual atropine with improvement in comfort and secretions. Not following commands today. No fevers 4/3: O2 saturations 96% on 2L. Not following commands, afebrile. Some movement of left hand. Not attempting to initiate any swallowing with prompting. Turned every 2 hours. No cough noted 4/4: Not attempting to initiate any swallowing with prompting. Turned every 2 hours. No cough noted. bedside. Able to move toes on right foot, no right arm movement. Squeezes left hand after verbal prompting x3. Afebrile overnight. Right toe movement noted as well as some more left hand squeeze with bedside. Squeezes hand when asked if she is in pain. 2L NCO2. She is greedily sucking on oral swabs today, squeezes hand in response to this. Plan: Hydration to palliate. Vitals Vitals Vital Signs Date Time Temp Pulse Resp B/P (MAP) Pulse Ox O2 Delivery O2 Flow Rate FiO2 02/04/20 10:55 02/04/20 09:15 79 Room Air 02/04/20 07:15 98.7 100 22 98.7 Physical Exam General: No acute distress, Other (Not verbally responsive, does not track or follow commands) Heart: Regular rate Lungs: Clear, Other Abdomen: Normal bowel sounds, Soft, No tenderness, No hepatosplenomegaly, No masses Extremities: No clubbing Skin: No rashes Comment Review of Relevant I have reviewed the following items tigre (where applicable) has been applied. Medications Current Medications Morphine Sulfate (Roxanol Conc) 5 mg PRN Q2HRS PRN SL SOA/MOD-SEVERE PAIN Last administered on 02/03/20at 18:44; Start 01/21/20 at 18:45 Morphine Sulfate (Morphine Sulfate) 1 mg PRN Q2HR PRN IV SOA/PAIN Last administered on 01/25/20at 13:12; Start 01/21/20 at 18:45 Lorazepam (Ativan) 1 mg PRN Q4HRS PRN PO ANXIETY / AGITATION; Start 01/21/20 at 18:45 Bisacodyl (Dulcolax Supp) 10 mg PRN DAILY PRN SC CONSTIPATION; Start 01/21/20 at 18:45 Promethazine HCl (Phenergan Supp) 25 mg PRN Q4HRS PRN SC NAUSEA/VOMITING; Start 01/21/20 at 18:45 Acetaminophen (Tylenol Supp) 650 mg PRN Q4HRS PRN SC MILD PAIN / TEMP; Start 01/21/20 at 18:45 Scopolamine (Transderm-Scop) 1 patch Q3DAYS TD Last administered on 02/03/20at 09:49; Start 01/22/20 at 14:00 Atropine Sulfate (Isopto Atropine) 1 drop PRN Q2HR PRN SL SECRETIONS; Start 01/22/20 at 13:45 Ketorolac Tromethamine (Toradol 15mg Vial) 15 mg PRN Q6HRS PRN IVP PAIN Last administered on 01/23/20at 22:13; Start 01/23/20 at 22:00; Stop 01/28/20 at 21:59; Status DC Lorazepam (Ativan Intensol) 2 mg PRN Q3HRS PRN SL ANXIETY / AGITATION Last administered on 02/03/20at 20:16; Start 01/24/20 at 15:30 Sodium Chloride 1,000 ml @ 50 mls/hr Q20H IV Last administered on 01/27/20at 08:28; Start 01/26/20 at 20:15; Stop 01/27/20 at 11:30; Status DC Sodium Chloride 1,000 ml @ 25 mls/hr Q24H IV Last administered on 02/01/20at 17:38; Start 02/01/20 at 17:15 Active Scripts Active Enema (Na Phos,M-B/Na Phos,Di-Ba) 133 Ml Enema 133 Ml SC PRN DAILY PRN 30 Days Atropine Sulfate 2 Ml Drops 1 Drop SL PRN Q2HR PRN 30 Days Furosemide 10 Mg/1 Ml Vial 40 Mg IVP PRN DAILY PRN 30 Days Lorazepam 2 Mg/1 Ml Vial 2 Mg IVP PRN Q4HRS PRN 30 Days Lorazepam Intensol (Lorazepam) 2 Mg/1 Ml Oral.conc 1 Mg SL PRN Q6HRS PRN 30 Days Acetaminophen Supp (Acetaminophen) 650 Mg Supp.rect 650 Mg SC PRN Q6HRS PRN 30 Days Morphine Sulfate 100 Mg/5 Ml Solution 4 Mg SL PRN Q3HRS PRN 30 Days Morphine Sulfate 4 Mg/1 Ml Cartridge 4 Mg IVP PRN Q2HR PRN 30 Days Vitals/I & O Vital Sign - Last 24 Hours 02/03/20 02/03/20 02/03/20 02/03/20 12:04 13:04 18:44 19:00 Temp 99.1 99.1 Pulse 177 Resp 24 B/P (MAP) 125/72 (89) Pulse Ox 83 O2 Delivery Room Air Room Air Room Air Room Air 02/03/20 02/03/20 02/04/20 02/04/20 19:45 20:00 07:15 07:30 Temp 98.7 98.7 Pulse 100 Resp 22 B/P (MAP) 111/59 (76) Pulse Ox 85 O2 Delivery Room Air Room Air Room Air Room Air 02/04/20 02/04/20 09:15 10:55 B/P (MAP) Pulse Ox 79 O2 Delivery Room Air Intake and Output 02/03/20 02/03/20 02/04/20 15:00 23:00 07:00 Intake Total 0 ml 0 ml Output Total 250 ml Balance 0 ml -250 ml PAPITO TAMEZ MD Feb 04, 2020 11:11
[2020-02-04] MEDS: IV NORMAL SALINE 1000ML BAG 1,000 ML IV SCH (17:15)
--- NOTE | 2020-02-04 17:58 | NUR ---
Pt. unresponsive, respirations 30, agonal breathing noted.
[2020-02-04 19:00] VITALS: BP 130/72
[2020-02-04] MEDS: LORazepam INTENSOL 2 MG/ML ORAL.CONC SL PRN (20:25)
--- NOTE | 2020-02-05 00:41 | NUR ---
During hourly rounds, patient found unresponsive, no respirations and no pulse. Patient pronounced at 0021 by MARY Vance and verified by MARY Dee. Hospice notified, nursing first line supervisor notified, [facility] notified and MD notified. Family notified of passing and now deciding on visitation at this time, awaiting return phone call.
--- NOTE | 2020-02-05 01:37 | NUR ---
Patient's spouse in room at this time for visitation.
--- NOTE | 2020-02-05 02:00 | NUR ---
piston makerMARY quinones, patient's spouse Addendum: 02/05/20 at 0250 by EVANGELINA ARENAS RN Note incomplete: piston makerMARY quinones; Patient's spouse visitation complete and patient belongings given to spouse.
--- NOTE | 2020-02-05 02:45 | NUR ---
Patient's remains escorted to [facility].
== END 2020-02-05 02:45 | disposition expired | DRG 64 ==
LOC: 6 SOUTH 16:13 → 4 NORTH 18:15
PROVIDERS: ADMIT Internal Medicine; ATTEND Internal Medicine
DX: I63.9 Cerebral infarction, unspecified (principal); J69.0 Pneumonitis due to inhalation of food and vomit; J96.91 Respiratory failure, unspecified with hypoxia; E03.9 Hypothyroidism, unspecified; G89.29 Other chronic pain; I10 Essential (primary) hypertension; I48.91 Unspecified atrial fibrillation; M19.90 Unspecified osteoarthritis, unspecified site; R13.10 Dysphagia, unspecified; Z51.5 Encounter for palliative care; K21.9 Gastro-esophageal reflux disease without esophagitis; K57.90 Diverticulosis of intestine, part unspecified, without perforation or abscess without bleeding; M54.5 Low back pain; Z66 Do not resuscitate; Z82.0 Family history of epilepsy and other diseases of the nervous system; Z82.49 Family history of ischemic heart disease and other diseases of the circulatory system; Z90.710 Acquired absence of both cervix and uterus; Z90.49 Acquired absence of other specified parts of digestive tract; Z87.440 Personal history of urinary (tract) infections; Z79.899 Other long term (current) drug therapy; Z88.1 Allergy status to other antibiotic agents; Z88.8 Allergy status to other drugs, medicaments and biological substances
CPT/HCPCS: 94760; J1885; J2270; J7030; 99285-25; G0378